=== PATIENT | female | born 1945 | race Caucasian/White ===

== ENCOUNTER → 2022-12-21 | Outpatient (CLI) | payer MEDICARE, SELFPAY ==
--- NOTE | 2022-12-21 13:15 | CT_ITS ---
STUDY: CTA ABDOMEN AND PELVIS WITH CONTRAST REASON FOR EXAM: Female, 77 years old. Evaluate AAA. RADIATION DOSAGE (If Supplied By Facility): CTDIvol = ( 27.40 ) mGy, DLP = ( 1829.69 ) mGycm TECHNIQUE: Transaxial images were obtained from the dome of the diaphragm to the symphysis pubis without oral contrast. IV 100mL Isovue-370 was administered. Sagittal and coronal images were reconstructed. 3-D images were reconstructed. Individualized dose optimization techniques were used for this CT. COMPARISON: None. FINDINGS: The visualized lung bases are unremarkable. The visualized portions of the heart are within normal limits. Normal liver. The patient is status post cholecystectomy. Normal spleen. Normal pancreas. Normal bilateral adrenal glands. Normal right kidney. Normal left kidney. Normal visualized stomach. Normal small intestine. Normal colon. The appendix is visualized and appears normal. There is evidence of a fusiform infrarenal abdominal aortic aneurysm with a transverse dimension of 4.9 cm. There is evidence of a mural calcification and mural thrombus. 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 Atherosclerotic calcification of the visceral arteries arising from the abdominal aorta. Normal inferior vena cava. Normal retroperitoneum. Normal urinary bladder. Normal abdominal wall. There are diffuse degenerative changes of the visualized lumbar spine. The patient is status post right total hip replacement. CT/CTA Abd/Pelvis W/WO Contrast IMPRESSION: Infrarenal abdominal aortic with a transverse dimension of 4.9 cm. 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 Electronically Signed: Andrew Borden MD at 15:06 EDT ,
--- NOTE | 2022-12-21 13:15 | CT_ITS ---
STUDY: CTA HEAD AND NECK WITH CONTRAST REASON FOR EXAM: Female, 77 years old. Carotid Artery Stenosis RADIATION DOSAGE (If Supplied By Facility): CTDIvol = ( 27.40 ) mGy, DLP = ( 1829.69 ) mGycm TECHNIQUE: CT angiography was performed with a multi-detector CT scanner. Data acquisition was obtained from the skull base through the vertex following intravenous administration of IV 100mL Isovue-370. MIP images were reconstructed from the axial data set. Post-processing of the angiographic images was performed, with multiplanar reformation and 3D reconstruction. Individualized dose optimization techniques were used for this CT. COMPARISON: No relevant priors. FINDINGS: Normal bilateral petrous carotid arteries. There is calcified plaque formation of the right cavernous carotid artery, without a cross-sectional luminal stenosis. There is calcified plaque formation of the left cavernous carotid artery, without a cross-sectional luminal stenosis. Normal right A1 segments of the anterior cerebral artery. Normal left A1 segments of the anterior cerebral artery. Normal intact anterior communicating artery (ACOM). Normal bilateral A2 segments of the anterior cerebral arteries. Normal right M1 and M2 segments of the middle cerebral arteries, with a normal M1 bifurcation. Normal left M1 and M2 segments of the middle cerebral arteries, with a normal M1 bifurcation. Normal right posterior communicating artery (PCOM). There is a persistent origin of the left posterior cerebral artery with absence of the posterior communicating artery (PCOM). Normal bilateral vertebral arteries. Normal basilar artery with a normal basilar bifurcation. The visualized bilateral superior cerebellar (SCA) arteries are normal. Normal bilateral P1, P2 and visualized P3 segments of the posterior cerebral arteries. There is no demonstrated aneurysm of the [place]. Cerebral atrophy. Decreased attenuation in the periventricular areas of both cerebral white matter in keeping with small vessel disease. Small lacunar infarct in the right basal ganglia. Focal encephalomalacia in the deep right parietal lobe in keeping with prior ischemic insult. AORTIC ARCH: There is atherosclerotic calcific plaque formation of the aortic arch and great vessels arising from the aortic arch, without a hemodynamically significant stenosis. There is a normal origin of the brachiocephalic, left common carotid, and left subclavian arteries. RIGHT CAROTID ARTERIES: Normal right common carotid artery (CCA). Normal right common carotid bulb. Normal origin of the right internal carotid (ICA) artery without a hemodynamically significant stenosis. Normal visualized cervical portion of the right internal carotid artery. Normal origin of the right external carotid artery (ECA). LEFT CAROTID ARTERIES: Normal left common carotid artery (CCA). Normal left common carotid bulb. There is severe atherosclerotic plaque formation of the origin of the left internal carotid artery with a near complete occlusion. Normal visualized cervical portion of the left internal carotid artery. Normal origin of the left external carotid artery (ECA). VERTEBRAL ARTERIES: There is enhancement within the bilateral vertebral arteries with a small right vertebral artery, and a dominant left vertebral artery. CT/CTA Head AND Neck W/ Contrast IMPRESSION: Tight stenosis at the origin of the left internal carotid artery caused by extensive calcific plaque formation. Small right vertebral artery. Heterogeneous appearance of the thyroid. Electronically Signed: Andrew Borden MD at 14:48 EDT ,
[2022-12-21 13:45] LABS: CREATININE FINGERSTICK < 0.9 mg/dL (0.55-1.02); EGFR FINGERSTICK > 60.0000 mL/min (>60)
== END | disposition home or self-care (01) ==
PROVIDERS: Referring Provider Physician Assistant; Visit Provider Physician Assistant
DX: I71.40 Abdominal aortic aneurysm, without rupture, unspecified (principal); I65.23 Occlusion and stenosis of bilateral carotid arteries
CPT/HCPCS: 70496; 70498; 74174; Q9967

== ENCOUNTER → 2023-08-01 | Outpatient (CLI) | payer MEDICARE, SELFPAY ==
--- NOTE | 2023-08-01 09:53 | CDU_ITS ---
Reason For Study: Carotid stenosis Rt. Velocities/BP Lt. Velocities/BP Prox CCA 63.6/21.1 cm/sec. Prox CCA 83.4/25.8 cm/sec. Mid CCA 72.1/22 cm/sec. Mid CCA 102.5/26.7 cm/sec. Dist CCA 56/15.4 cm/sec. Dist CCA 60.8/20.1 cm/sec. Prox ICA 51.3/17.3 cm/sec. Prox ICA 220.8/67.9 cm/sec. Mid ICA 74.4/24.2 cm/sec. Mid ICA 178.8/52.7 cm/sec. Dist ICA 80.2/28.6 cm/sec. Dist ICA 112.6/27 cm/sec. Rt. ICA/CCA = 1.26. Lt. ICA/CCA = 2.65. Prox ECA 49.4/9.7 cm/sec. Prox ECA 101.4/17.9 cm/sec. Rt. Vert. 23/10.2 cm/sec. Lt. Vert. 53.1/20.1 cm/sec. Right Extracranial There is heterogeneous, irregular atherosclerotic plaque noted in the right common carotid artery. There is homogeneous, smooth atherosclerotic plaque noted in the right internal carotid artery. There is homogeneous, smooth atherosclerotic plaque noted in the right external carotid artery. Antegrade flow is noted in the right vertebral artery. Left Extracranial There is heterogeneous, irregular atherosclerotic plaque noted in the left common carotid artery. There is heterogeneous, irregular atherosclerotic plaque noted in the left internal carotid artery. There is heterogeneous, irregular atherosclerotic plaque noted in the left external carotid artery. Antegrade flow is noted in the left vertebral artery. Procedure This is a Carotid Duplex examination using B-mode, color flow and specral Doppler. Carotid Duplex [id number]. Exam performed in department. VL/Carotid Duplex Ultrasound Interpretation Summary Mild (<50%) stenosis right extracranial internal carotid. Moderate (50-69%) stenosis left extracranial internal carotid. Patent and antegrade vertebrals bilaterally. Ordering Physician: Miguel Leiva Referring Physician: Bandar Epstein Performed By: Bessie Trujillo Dorie
--- NOTE | 2023-08-01 09:53 | AAVD_ITS ---
Reason For Study: AAA Aorta Measurements Aorta Doppler Measurements Proximal aorta measures1.80 x 1.79cm. in cross- Peak systolic flow velocities within the proximal sectional axis. aorta measure 50.2 cm/sec. Proximal aorta measures1.75cm. in longitudinal Peak systolic flow velocities within the mid aorta axis. measure 42.9 cm/sec. Mid aorta measures2.07 x 1.95cm. in cross- Peak systolic flow velocities within the distal sectional axis. aorta measure 33 cm/sec. Mid aorta measures2.56cm. in longitudinal axis. Distal aorta measures4.04 x 4.38cm. in cross- sectional axis. Distal aorta measures3.81cm. in longitudinal axis. Mural thrombus noted in the distal arota. Distal true lumen measures 2.21 x 1.94 cm. Left Iliac Artery Left iliac artery measures 0.66 x 0.66 cm. in the cross-sectional axis. Left iliac artery measures 0.63 cm. in the longitudinal axis. Peak systolic velocity in the left iliac artery measures 85.4 cm/sec. Right Iliac Artery Right iliac artery measures 0.66 x 0.67 cm. in the cross-sectional axis. Right iliac artery measures 0.65 cm. in the longitudinal axis. Peak systolic velocity in the right iliac artery measures 113.9 cm/sec. Procedure Aorta IVC Iliac vasculature or bypass grafts [id number]. Exam performed in department. VL/Abd Aortic/IVC Duplex scan Interpretation Summary Aorta patent, 4.38 cm aneurysm present Bilateral iliac arteries patent, normal caliber Ordering Physician: Miguel Leiva Referring Physician: Bandar Epstein Performed By: Bessie Trujillo RVT
--- OUTSIDE RECORDS SUMMARY | 2023-08-01 10:47 | XMS RPT_ITS | CCD ---
Author Name Unknown Address [address] [place] [address] Organization [facility] Care Team Providers Care Coil Connector Repairer Name Role Phone Reji Williamson Primary Care Provider [phone] Nilesh Newton Primary Care Provider [phone] Nilesh Newton Primary Care Provider Unav ailable Nilesh Newton Primary Care Provider Nilesh Newton MD Primary Care Provider Nilesh Newton MD Primary Care Provider Nilesh Newton MD Primary Care Provider Reji Williamson MD Primary Care Provider [phone] Nilesh Newton MD Primary Care Provider PROVIDER, UNKNOWN Referring Unavailable Nilesh Newton Primary Care Unavailable Miguel Leiva Attending Unavailable PROVIDER, UNKNOWN Referring Unavailable Nilesh Newton Primary Care Unavailable Nilesh Newton Attending Unavailable PROVIDER, UNKNOWN Referring Unavailable Nilesh Newton Primary Care Unavailable Nilesh Newotn Attending Unavailable NILESH NEWTON MD Primary Care Unavail able ERIC ERVIN MD Attending Unavailable AZIZA DENNIS, ERIC Admitting Unavailable Nilesh Newton MD Primary Care Provider Nilesh Newton MD Primary Care Provider NILESH NEWTON Primary Care Unavailable QUINTEN MINERISON Referring Unavailable DANIELE MINER Attending Unavailable MICHELLE ADDISON Attending Unavailable NILESH NEWTON Primary Care Unavailable NILESH NEWTON Primary Care Unavailable LESLIE VENTURA Attending Unavailable NILESH NEWTON Referring Unavailable NILESH NEWTON Referring Unavailable JOE RUCKER Referring Unavailable HIPOLITO BLACK Referring Unavailable Allergies Allergy Classification Reported Allergen(s) Allergy Type Date of Onset Reaction(s) Facility Quinolones (antibiotic) (3 sources) levoFLOXacin Drug Allergy 9 Other (See Comments) [facility] (20 sources) levoFLOXacin Drug Allergy 9 Other (See Comments) [place] (20 sources) Morphine And Related Propensity to adverse reactions to drug 8 Itching [place] (11 sources) levoFLOXacin Drug Allergy 2 Nausea Only [facility] (11 sources) Morphine Drug Allergy 5 Itching [facility] Medications Current Medications Medication Drug Class(es) Dates Sig (Normalized) Sig (Original) acetaminophen 500 mg oral tablet (13 sources) Start: 10-18-2020 acetaminophen (TYLENOL) tablet 1,000 mg Completed/Discontinued Medications Medication Drug Class(es) Dates Sig (Normalized) Sig (Original) acetaminophen 325 mg / oxyCODONE hydrochloride 5 mg oral tablet (2 sources) Opioid Agonist Start: 10-18-2020 End: 10-18-2020 take 1 tablet by mouth every four hours as needed for pain 1 tablet, Oral, EVERY 4 HOURS PRN, Pain Severe (7-10), Starting 10/18/20 at 0629 Maximum dose of acetaminophen is 4000 mg from all sources in 24 hours. amLODIPine 5 mg oral tablet (19 sources) Dihydropyridine Calcium Channel Lito Start: 07-20-2022 End: 05-26-2023 take 1 tablet by mouth once daily amLODIPine (Norvasc) 5 MG tablet Indications: Essential hypertension Take 1 tablet (5 mg) by mouth daily. 90 tablet 3 05/10/2023 05/26/2023 Discontinued calcium chloride 0.0014 meq/ml / potassium chloride 0.004 meq/ml / sodium chloride 0.103 meq/ml / sodium lactate 0.028 meq/ml injectable solution (1 source) Start: 02-07-2020 End: 02-08-2020 Intravenous, at 150 mL/hr, CONTINUOUS, Starting 02/07/20 at 1130 2 ml fentaNYL 0.05 mg/ml injection (1 source) Opioid Agonist Start: 02-07-2020 End: 02-07-2020 fentaNYL (SUBLIMAZE) injection 25 mcg 1 ml heparin sodium, porcine 5000 unt/ml prefilled syringe (1 source) Unfractionated Heparin, Anti-coagulant Start: 10-18-2020 End: 10-18-2020 heparin (porcine) injection 5,000 Units 1 ml hydrALAZINE hydrochloride 20 mg/ml injection (1 source) Arteriolar Vasodilator Start: 02-08-2020 End: 02-08-2020 hydrALAZINE (APRESOLINE) injection 5 mg iopamidol (ISOVUE-370) 76 % injection 75 mL (1 source) Start: 05-30-2020 End: 05-30-2020 iopamidol (ISOVUE-370) 76 % injection 75 mL niCARdipine (CARDENE) 20 mg in 0.9 % sodium chloride 200 mL solution (1 source) Start: 10-18-2020 End: 10-18-2020 niCARdipine (CARDENE) 20 mg in 0.9 % sodium chloride 200 mL solution nitroglycerin 0.4 mg sublingual tablet (20 sources) Nitrate Vasodilator End: 10-18-2020 nitroGLYCERIN (NITROSTAT) 0.[address] 0.4 mg under the tongue every 5 minutes as needed for Chest pain up to max of 3 total doses. If no relief after 1 dose, call 911. 0 10/18/2020 Discontinued (LIST CLEANUP) piperacillin 3000 mg / tazobactam 375 mg injection (1 source) Penicillin-class Antibacterial, beta Lactamase Inhibitor Start: 02-07-2020 End: 02-08-2020 piperacillin-tazo bactam (ZOSYN) 3.375 g in dextrose 50 mL IVPB extended infusion (premix) microencapsulated potassium chloride 10 meq extended release oral tablet (2 sources) Start: 10-18-2020 End: 10-18-2020 potassium chloride (KLOR-CON M) extended release tablet 40 mEq Problems Active Problems Problem Classification Problem Date Documented Date Episodic/Chronic Abdominal pain (1 source) Right lower quadrant pain; Translations: [Groin pain, right] Episodic Acute cerebrovascular disease (17 sources) Ischemic stroke; Translations: [Cerebral infarction, unspecified] Onset: 10-18-2020 Chronic Administrative/social admission (1 source) Tobacco abuse counseling; Translations: [TOBACCO ABUSE COUNSELING] Onset: 09-28-2022 Episodic Anxiety disorders (20 sources) Mixed anxiety and depressive disorder; Translations: [Other specified anxiety disorders] Onset: 05-09-2019 05-09-2019 Chronic Aortic; peripheral; and visceral artery aneurysms (20 sources) Abdominal aortic aneurysm; Translations: [Abdominal aortic aneurysm without rupture] Onset: 05-21-2018 05-21-2018 Chronic Cardiac dysrhythmias (1 source) Palpitations; Translations: [Palpitations] Episodic Chronic obstructive pulmonary disease and bronchiectasis (20 sources) Acute exacerbation of chronic obstructive airways disease with asthma; Translations: [Acute exacerbation of chronic obstructive airways disease] Onset: 05-09-2019 05-10-2019 Chronic Coronary atherosclerosis and other heart disease (20 sources) Coronary arteriosclerosis in [place] artery; Translations: [Coronary atherosclerosis] Onset: 03-16-2018 03-16-2018 Chronic Disorders of lipid metabolism (20 sources) Hyperlipidemia; Translations: [Hyperlipidemia, unspecified] Onset: 10-19-2020 05-21-2018 Chronic Esophageal disorders (20 sources) Gastroesophageal reflux disease; Translations: [Gastro-esophageal reflux disease without esophagitis] Onset: 03-15-2018 03-15-2018 Chronic Essential hypertension (20 sources) Essential hypertension; Translations: [Hypertensive disorder] Onset: 03-16-2018 Resolved: 04-28-2020 03-16-2018 Chronic Genitourinary symptoms and ill-defined conditions (1 source) Retention of urine; Translations: [Retention of urine, unspecified] Episodic Hypertension with complications and secondary hypertension (17 sources) Hypertensive emergency; Translations: [Hypertensive emergency] Onset: 10-18-2020 Chronic Miscellaneous mental health disorders (20 sources) Insomnia disorder related to another mental disorder; Translations: [Insomnia due to other mental disorder] Onset: 05-09-2019 05-09-2019 Chronic Nonmalignant breast conditions (1 source) Lump in upper outer quadrant of right breast; Translations: [Unspecified lump in the right breast, upper outer quadrant] Episodic Occlusion or stenosis of precerebral arteries (20 sources) Occlusion and stenosis of bilateral carotid arteries; Translations: [Bilateral carotid artery stenosis] Onset: 10-18-2020 Chronic Osteoarthritis (20 sources) Osteoarthritis; Translations: [Unspecified osteoarthritis, unspecified site] Onset: 10-08-2018 10-22-2018 Chronic Osteoporosis (20 sources) Osteoporosis; Translations: [Age-related osteoporosis without current pathological fracture] Onset: 10-08-2018 10-22-2018 Chronic Other acquired deformities (1 source) Other forms of scoliosis, lumbar region; Translations: [OTHER FORMS SCOLIOSIS LUMBAR REGION] Onset: 09-28-2022 Chronic Other aftercare (1 source) [facility] (current) use of aspirin; 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] Onset: 09-28-2022 Episodic Other aftercare (1 source) Other long-term (current) drug therapy; Translations: [OTH [facility] CURRENT DRUG THERAPY] Onset: 09-28-2022 Episodic Other connective tissue disease (17 sources) History of repair of hip joint; Translations: [Presence of right artificial hip joint] Onset: 10-19-2020 Chronic Other connective tissue disease (1 source) Presence of right artificial hip joint; Translations: [PRESENCE RIGHT ARTIFICIAL HIP JOINT] Onset: 09-28-2022 Chronic Other connective tissue disease (1 source) Myalgia, other site; Translations: [MYALGIA OTHER SITE] Onset: 09-28-2022 Episodic Other hematologic conditions (1 source) Protein level - finding; Translations: [Other specified abnormalities of plasma proteins] Episodic Peripheral and visceral atherosclerosis (20 sources) Peripheral vascular disease; Translations: [Atherosclerosis of [place] arteries of the extremities] Onset: 03-15-2018 03-15-2018 Chronic Residual codes; unclassified (1 source) Pain, unspecified; Translations: [PAIN UNSPECIFIED] Onset: 09-28-2022 Episodic Spondylosis; intervertebral disc disorders; other back problems (3 sources) Spondylosis without myelopathy or radiculopathy, lumbar region; Translations: [Sacroiliitis, not elsewhere classified] Onset: 03-02-2022 Chronic Spondylosis; intervertebral disc disorders; other back problems (2 sources) Sciatica; Translations: [Spinal stenosis, lumbar region with neurogenic claudication] Onset: 09-28-2022 Episodic Substance-related disorders (1 source) Nicotine dependence, cigarettes, uncomplicated; Translations: [NICOTINE DEPEND CIGARETTES UNCOMP] Onset: 09-28-2022 Chronic Thyroid disorders (20 sources) Thyrotoxicosis; Translations: [Thyrotoxicosis, unspecified without thyrotoxic crisis or storm] Onset: 05-10-2019 05-10-2019 Chronic Transient cerebral ischemia (17 sources) Transient cerebral ischemia; Translations: [Transient cerebral ischemic attack, unspecified] Onset: 10-18-2020 Chronic Unclassified (1 source) Low back pain, unspecified; Translations: [Low back pain, unspecified] Onset: 03-02-2022 Unclassified (1 source) Abdominal aortic aneurysm, without rupture, unspecified; Translations: [Abdominal aortic aneurysm, without rupture, unspecified] Onset: 07-22-2022 Past or Other Problems Problem Classification Problem Date Documented Date Episodic/Chronic Acute and unspecified renal failure (17 sources) Acute injury of kidney; Translations: [Acute kidney failure, unspecified] Onset: 10-19-2020 Episodic Conditions associated with dizziness or vertigo (20 sources) Dizziness; Translations: [Dizziness and giddiness] Onset: 03-15-2018 03-15-2018 Episodic Fluid and electrolyte disorders (20 sources) Hyponatremia; Translations: [Hypo-osmolality and hyponatremia] Onset: 05-09-2019 05-09-2019 Episodic Nonspecific chest pain (20 sources) Chest pain on exertion; Translations: [Chest pain, unspecified] Onset: 03-15-2018 03-15-2018 Episodic Other lower respiratory disease (20 sources) Dyspnea on exertion; Translations: [Shortness of breath] Onset: 03-15-2018 03-15-2018 Episodic Other lower respiratory disease (20 sources) Dyspnea; Translations: [Shortness of breath] Onset: 05-09-2019 05-09-2019 Episodic Other lower respiratory disease (17 sources) Respiratory insufficiency; Translations: [Other abnormalities of breathing] Onset: 10-19-2020 Episodic Other nervous system disorders (20 sources) Tremor; Translations: [Tremor, unspecified] Onset: 05-09-2019 05-09-2019 Episodic Other nutritional; endocrine; and metabolic disorders (20 sources) Weight loss; Translations: [Abnormal weight loss] Onset: 05-09-2019 05-09-2019 Episodic Other screening for suspected conditions (not mental disorders or infectious disease) (2 sources) Encounter for screening mammogram for malignant neoplasm of breast; Translations: [Encounter for screening mammogram for malignant neoplasm of breast] Onset: 06-07-2022 Episodic Pancreatic disorders (not diabetes) (20 sources) Acute pancreatitis; Translations: [Gallstone pancreatitis] Onset: 02-07-2020 Resolved: 02-28-2020 02-09-2020 Episodic Residual codes; unclassified (2 sources) Tobacco use; Translations: [Tobacco use] Onset: 11-28-2022 Episodic Residual codes; unclassified (2 sources) Asymptomatic menopausal state; Translations: [Asymptomatic menopausal state] Onset: 06-07-2022 Episodic Unclassified (1 source) Low back pain, unspecified; Translations: [Low back pain, unspecified] Onset: 03-02-2022 Unclassified (1 source) Abdominal aortic aneurysm, without rupture, unspecified; Translations: [Abdominal aortic aneurysm, without rupture, unspecified] Onset: 07-22-2022 Results Test Name Value Interpretation Reference Range Facil ity Vital Signs Date Time Vital Sign Value Performing Clinician Faci lity 03-29-2023 15:02-0400 Diastolic blood pressure 80 mm[Hg] Leslie Ventura MD Work Phone: [employer] 03-29-2023 15:02-0400 Systolic blood pressure 140 mm[Hg] Otelias Ventura MD Work Phone: [employer] 03-29-2023 14:49-0400 Body height 149.9 cm Otelias Ventura MD Work Phone: [employer] 03-29-2023 14:49-0400 Body mass index (BMI) [Ratio] 26.05 kg/m2 Otelias Ventura MD Work Phone: [employer] 03-29-2023 14:49-0400 Body weight 58.51 kg Otelias Ventura MD Work Phone: [employer] 03-29-2023 14:49-0400 Heart rate 60 /min Otelias Ventura MD Work Phone: [employer] 03-29-2023 14:49-0400 SaO2% (BldA) [Mass fraction] 97 % Leslie Ventura MD Work Phone: [employer] 10-19-2020 17:00-0400 Diastolic blood pressure 84 mm[Hg] Yasir Donohue MD Work Phone: [facility] Work Phone: 10-19-2020 17:00-0400 Heart rate 67 /min Yasir Donohue MD Work Phone: [facility] Work Phone: 10-19-2020 17:00-0400 Respiratory rate 16 /min Yasir Donohue MD Work Phone: [facility] Work Phone: 10-19-2020 17:00-0400 SaO2% (BldA) [Mass fraction] 98 % Yasir Donohue MD Work Phone: [facility] Work Phone: 10-19-2020 17:00-0400 Systolic blood pressure 155 mm[Hg] Yasir Donohue MD Work Phone: [facility] Work Phone: 10-19-2020 16:00-0400 Body temperature 98.01 [degF] Yasir Donohue MD Work Phone: [facility] Work Phone: 10-18-2020 04:27-0400 Body mass index (BMI) [Ratio] 23.62 kg/m2 Yasir Donohue MD Work Phone: [facility] Work Phone: 10-18-2020 04:27-0400 Body weight 56.7 kg Yasir Donohue MD Work Phone: [facility] Work Phone: 10-18-2020 00:30-0400 Body height 154.9 cm Yasir Donohue MD Work Phone: [facility] Work Phone: 05-30-2020 17:56-0500 BP Diastolic 85 mm[Hg] [facility] , [place] 05-30-2020 17:56-0500 BP Systolic 152 mm[Hg] [facility] , [place] 05-30-2020 17:56-0500 Pulse (Heart Rate) 65 /min [facility] [place], [place] 05-30-2020 17:56-0500 Respiratory Rate 16 /min Fred Palacios [facility], [place] 05-30-2020 14:58-0500 BMI (Body Mass Index) 25.97 kg/m2 Fred Argueta [facility], [place] 05-30-2020 14:58-0500 Body Temperature 97.11 [degF] [facility] [place] 05-30-2020 14:58-0500 Body weight 60.33 kg Fred Palacios [facility] , [place] 05-30-2020 14:58-0500 Height 152.4 cm Fred Palacios [facility] , [place] 05-30-2020 14:58-0500 Pulse Oximetry 100 % Fred Palacios [facility] , [place] 02-09-2020 07:48-0400 BP Diastolic 104 mm[Hg] [facility] , [place] 02-09-2020 07:48-0400 BP Systolic 183 mm[Hg] [facility] , [place] 02-09-2020 07:48-0400 Pulse (Heart Rate) 77 /min [place] 02-09-2020 07:42-0400 Body Temperature 97.9 [degF] [facility] [place] 02-09-2020 07:42-0400 Pulse Oximetry 96 % [facility] [place] 02-09-2020 07:42-0400 Respiratory Rate 12 /min [facility] [place] 02-09-2020 04:49-0400 BMI (Body Mass Index) 25.48 kg/m2 Amanda Kay [facility], [place] 02-09-2020 04:49-0400 Body weight 61.18 kg [facility] [place] 02-07-2020 05:09-0400 Height 154.9 cm [facility] [place] Encounters Encounter Date Encounter Type Care Provider Facility Start: 05-26-2023 Refill Otfried Kim peña MD Work Phone: [facility] Procedures Date Procedure Procedure Detail Performing Clinician Start: 03-02-2022 Lipid 1996 panel - S ron or Plasma Miguel Leiva MD Work Phone: Start: 12-06-2021 Duplex scan extracra nial art compl bi study Miguel Leiva MD Work Phone: Start: 05-06-2021 VL US DUPLEX AORTA I VC ILIAC COMPLETE Hipolito HUDSON Work Phone: Start: 05-06-2021 Duplex scan extracra nial art compl bi study Miguel Leiva MD Work Phone: Start: 01-19-2021 Diagnostic mammograp hy computer-aided detcj bi Ranjeet Lopez MD Work Phone: Start: 10-19-2020 Mri brain brain stem w/o contrast material Danni Ali DO Work Phone: Start: 10-19-2020 Calcium ionized Danni Ali DO Work Phone: Start: 10-18-2020 Assay of troponin quantitative Danni Ali DO Work Phone: Start: 10-18-2020 Basic metabolic pane l calcium total Tyrese Monzon [employer]WIST 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 Work Phone: Start: 10-18-2020 Lipid panel Tyrese Monzon [employer]PTWIST 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 Work Phone: Start: 10-18-2020 Echo tthrc r-t 2d w/wom-mode compl spec&colr d Danni Ali DO Work Phone: Start: 10-18-2020 BLOOD GAS, ARTERIAL Fat fabi Ali DO Work Phone: Start: 10-18-2020 Assay of lactate Danni Ali DO Work Phone: Start: 10-18-2020 Thromboplastin time partial plasma/whole blood Danni Ali DO Work Phone: Start: 10-18-2020 ADD ON LAB TEST Yasir Donohue MD Work Phone: Start: 10-18-2020 Radiologic exam ches t single view Yasir Donohue MD Work Phone: Start: 10-18-2020 Speech and language therapy regime Danni Trinh DO Work Phone: Start: 10-18-2020 Ecg routine ecg w/le ast 12 lds w/i&r Yasir Donohue MD Work Phone: Start: 10-18-2020 Radex hip unilateral with pelvis 2-3 views Yasir Donohue MD Work Phone: Start: 10-18-2020 End: 10-18-2020 Ct angiography head w/contrast/noncontrast Yasir Donohue MD Work Phone: Start: 10-18-2020 Cerebral perfusion a nalys ct w/blood flow&volume Yasir Donohue MD Work Phone: Start: 10-18-2020 End: 10-18-2020 POC BMP, WHOLE BLOOD Unknown Provider Re sult Start: 10-18-2020 Creatine kinase total D ginette Donohue MD Work Phone: Start: 09-30-2020 Ct lower extremity w /o contrast material Dick Frazier Work Phone: Start: 05-30-2020 Cta abdl aorta&bi il iofem w/contrast&postp Fred Palacios Work Phone: Start: 05-30-2020 Basic metabolic pane l calcium total Fred Palacios Work Phone: Start: 05-30-2020 Blood count complete auto&auto difrntl wbc Fred Palacios Work Phone: Start: 04-21-2020 VL US DUPLEX AORTA I VC ILIAC COMPLETE Miguel J Cali Work Phone: Start: 04-21-2020 Duplex scan extracra nial art compl bi study Stephanie Loving Work Phone: Start: 02-08-2020 OPERATIVE REPORT 3m Sca nning Start: 02-08-2020 Assay of lipase Yasir Herbert Work Phone: Start: 02-08-2020 Assay of magnesium Nic las Elviak Work Phone: Start: 02-08-2020 Blood count complete auto&auto difrntl wbc Yasir Godinez Work Phone: Start: 02-07-2020 Mri abdomen w/o cont rast material Yasir Godinez Work Phone: Start: 02-07-2020 ADD ON LAB TEST Yasir Godinez Work Phone: Start: 02-07-2020 Ecg routine ecg w/le ast 12 lds w/i&r Amanda [place] Work Phone: Start: 02-07-2020 Us abdominal real ti me w/image limited Leydi Vaildanicataisha Work Phone: Start: 02-07-2020 Assay of lipase Amanda Kay Work Phone: Start: 02-07-2020 Basic metabolic pane l calcium total Amanda Kibe Work Phone: Start: 02-07-2020 Blood count complete auto&auto difrntl wbc Amanda Kibe Work Phone: Start: 02-07-2020 Hepatic function panel Amanda [facility] Work Phone: Start: 07-09-2019 Brncdilat rspse spmt ry pre&post-brncdilat admn Les Cho MD Work Phone: Start: 07-09-2019 NEBULIZER TX INTERMITTENT Les Cho MD Work Phone: Start: 04-04-2019 VL US DUPLEX AORTA I VC ILIAC COMPLETE Miguel Leiva Work Phone: Start: 04-04-2019 N-invas physiologic std lxtr art compl bi Miguel Leiva Work Phone: Plan of Treatment Date Care Activity Detail Author Start: 03-02-2027 Lipid panel Lipid Panel [facility] Start: 04-02-2024 End: 04-02-2024 Patient encounter procedure 04/02/2024 1:00 PM EDT Office Visit [facility] [address] [place] [id number] Leslie Ventura MD [address] [place] [address] [facility] Start: 06-07-2023 Screening for osteoporosis Bone Density Scan [facility] Start: 03-21-2023 End: 03-21-2023 Patient encounter procedure 03/21/2023 1:30 PM EDT Office Visit [facility] [address] [place] [phone] Leslie Ventura MD [address] [place] [address] [facility] Start: 02-24-2023 COVID-19 Vaccine ( season) COVID-19 Vaccine () [facility] Start: 02-24-2023 Influenza vaccination [facility] Start: 11-07-2022 End: 11-07-2022 Patient encounter procedure 11/07/2022 Office Visit Cardiology Michelle Addison, [employer]WIST 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 [address] [address] [facility] Start: 07-18-2022 End: 07-18-2023 CT Cervical spine WO contrast CTA abdomen angiogram w and/or wo IV contrast Imaging Routine AAA (abdominal aortic aneurysm) Expected: 07/18/2022, Expires: 07/18/2023 [facility] Work Phone: Immunizations Immunization Date Immunization Notes Care Provider [facility] 07-19-2022 influenza virus vaccine, unspecified formulation Leslie Ventura MD Work Phone: [facility] 03-30-2021 influenza virus vaccine, unspecified formulation Miguel Leiva MD Work Phone: [facility] 06-28-2019 Influenza, High-dose , Quadv, 65 yrs +, IM (Fluzone) Yadira Greene [employer]WIST 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 Work Phone: [facility] Work Phone: 05-06-2018 Influenza, injectabl e, Madin Wayland Canine Kidney, preservative free, quadrivalent [facility], [place] 08-02-2016 Influenza, injectabl e, Madin Demetria Canine Kidney, preservative free, quadrivalent [facility] 06-26-2014 pneumococcal Conjugate, unspecified formulation [facility], [place] 06-26-2014 pneumococcal vaccine , unspecified formulation Yadira Greene [employer]PTWIST 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 Work Phone: [facility] Work Phone: Payers Date Payer Category Payer Medicare A[employer] MEDICARE A DVANTAGE AETNA MEDICARE [id number] 2021-Present [address] [place] [address] Medicare HMO [id number] 2014 Medicare UHC MEDICARE UHC MEDICARE COMPLETE xxxxxxxxx 2014-Present xxxxxxxxx [id number] 2014 Medicare UHC MEDICARE UHC MEDICARE COMPLETE [id number] 2014-Present [id number] 1959 Medicare [id number] 1945 Unknown [id number] 1945 Unknown [id number] 1945 Unknown [id number] 1945 Unknown [id number] Private Health Insurance Social History Date Type Detail Facility Start: 01-28-1969 End: 05-16-2022 Tobacco smoking status NHIS Current every day smoker [place], [place] Start: 01-28-1969 History of tobacco use Cigarette Smo ker [place] Start: 05-31-2019 End: 03-29-2023 Cigarettes smoked current (pack per day) - Reported [place] Start: 05-31-2019 End: 03-29-2023 Alcohol intake Current non-drinker of alcohol (finding) [place] Sex Assigned At Not on file [place] Start: 06-10-2019 End: 05-16-2022 Tobacco use and exposure Never used [place] Start: 07-12-2022 End: 07-22-2022 Exposure to SARS-CoV-2 (event) Not sure [place] Start: 1945 Sex Assigned At Female [place] Start: 01-29-2019 End: 03-29-2023 Alcohol intake No [place] Start: 11-06-2020 Tobacco Comment 5 cigarettes/day [facility] Work Phone: Start: 04-14-2022 Gender identity Identifies as female gender (finding) [facility] Clinical Notes 10-19-2020 to 05-26-2023 Telephone Encounter - Henri Pino RN - 05/26/2023 11:00 AM ESTTelephone Encounter - Henri Pino RN - 05/26/2023 11:00 AM ESTTelephone Encounter - Gladys Roche - 05/26/2023 10:31 AM ESTAttachments Note Date & Type Note Facility 05-26-2023 Telephone encounter Note I received escript request- sent to ONN to sign [facility] 05-26-2023 Miscellaneous Notes I received escript request- sent to ONN to sign Patient daughter called and patient will be out of amlodipine over the weekend still has not got the mail order supposed to come Monday got delivered to wrong house please advise Local Rx gets cancelled when mail away pharmacy sent. Pt unable to get refill. Phoned in short term amlodipine script to [facility]. #7 refill 1 pt will get notified when script is ready Pended rx for long-term. Pt should have 1 refill left on 7 day supply at [facility] Addended by: HENRI PINO on: 05/10/2023 03:18 PM Modules accepted: Orders Amlodipine 5mg OV 03/29/2023 patient still has not received through mail away stated it got cancelled and only has 1 pill left if possible could get another short term to [facility] and then sent in to her mail away which is [facility] for qty of 90* then please call nica for update Amlodipine 5mg OV 03/29/2023 Pharmacy on file[facility] just need a week supply because waiting on mail order documented in this encounter [facility] 05-26-2023 Telephone encounter Note OV 03/29/23 [facility] 05-26-2023 Miscellaneous Notes OV 03/29/23 documented in this encounter [facility] 05-26-2023 Telephone encounter Note Patient daughter called and patient will be out of amlodipine over the weekend still has not got the mail order supposed to come Monday got delivered to wrong house please advise [facility] 05-10-2023 Note Addended by: HENRI PINO on: 05/10/2023 03:18 PM Modules accepted: Orders [facility] 05-10-2023 Telephone encounter Note Local Rx gets cancelled when mail away pharmacy sent. Pt unable to get refill. Phoned in short term amlodipine script to [facility]. #7 refill 1 pt will get notified when script is ready [facility] 05-10-2023 Miscellaneous Notes Local Rx gets cancelled when mail away pharmacy sent. Pt unable to get refill. Phoned in short term amlodipine script to [facility] #7 refill 1 pt will get notified when script is ready Pended rx for long-term. Pt should have 1 refill left on 7 day supply at [facility] Addended by: HENRI PINO on: 05/10/2023 03:18 PM Modules accepted: Orders Amlodipine 5mg OV 03/29/2023 patient still has not received through mail away stated it got cancelled and only has 1 pill left if possible could get another short term to [facility] and then sent in to her mail away which is [facility] for qty of 90* then please call nica for update Amlodipine 5mg OV 03/29/2023 Pharmacy on file[facility] just need a week supply because waiting on mail order documented in this encounter [facility] 05-10-2023 Telephone encounter Note Pended rx for long-term. Pt should have 1 refill left on 7 day supply at [facility] 05-10-2023 Note Addended by: HENRI PINO on: 05/10/2023 03:18 PM Modules accepted: Orders [facility] 05-10-2023 Note Addended by: HENRI PINO on: 05/10/2023 03:18 PM Modules accepted: Orders [facility] 05-10-2023 Note Addended by: HENRI PINO on: 05/10/2023 03:18 PM Modules accepted: Orders [facility] 05-10-2023 Note Addended by: HENRI PINO on: 05/10/2023 03:18 PM Modules accepted: Orders [facility] 05-10-2023 Telephone encounter Note Amlodipine 5mg OV 03/29/2023 patient still has not received through mail away stated it got cancelled and only has 1 pill left if possible could get another short term to [facility] and then sent in to her mail away which is [facility] for qty of 90* then please call nica for update [facility] 05-02-2023 Telephone encounter Note Amlodipine 5mg OV 03/29/2023 Pharmacy on [facility] just need a week supply because waiting on mail order [facility] 05-02-2023 Miscellaneous Notes Amlodipine 5mg OV 03/29/2023 Pharmacy on [facility] just need a week supply because waiting on mail order documented in this encounter [facility] 03-29-2023 History of Presen t illness Narrative [facility] [address] [facility] [address] Dept: [phone] Dept Visit type: Established : 1945 Chief Complaint: Chief Complaint Patient presents with 6 Month Follow-up Coronary Artery Disease History of Present Illness: Fitz Street is a 77 y.o. female who presents today for routine follow-up regarding her coronary artery disease, hyperlipidemia and hypertension. She is accompanied by her [id number]. She denies shortness of breath, chest pain, palpitations, syncope. She denies any changes in her overall health since last year. She is followed by Dr. Leiva for her peripheral vascular disease, carotid disease and AAA. She had right carotid endarterectomy and did well. She likely will face left carotid endarterectomy in the foreseeable future. Past Medical History: Past Medical History: Diagnosis Date Abdominal aortic aneurysm (HCC) Anxiety 07/05/2016 Arthritis Basal cell carcinoma 2021 Bilateral carotid artery stenosis CAD (coronary artery disease) Chest pain COPD (chronic obstructive pulmonary disease) (HCC) CVA (cerebral vascular accident) (HCC) Depression 07/05/2016 Gallstone pancreatitis GERD with esophagitis 08/02/2016 Gout 01/18/2018 Hyperlipidemia Hypertension Peripheral vascular disease (HCC) TIA (transient ischemic attack) Tobacco abuse Vagal reaction 03/03/2015 pt states she had a vagal reaction while in OR for iliac stent surgery and had to have CPR Past Surgical History Past Surgical History: Procedure Laterality Date BREAST BIOPSY Right 2020 BREAST BIOPSY Right 2020 CARDIAC PROCEDURE 2011 stent x 1 CAROTID ENDARTERECTOMY Right 10/29/2020 [place] CATARACT EXTRACTION CHOLECYSTECTOMY 02/08/2020 Dr. Mccauley CORONARY ANGIOPLASTY PCI to LAD 2010 CORONARY ANGIOPLASTY WITH STENT PLACEMENT FEMORAL BYPASS Bilateral 03/03/2015 [facility], 3 stents each side femoral KNEE ARTHROSCOPY Right OOPHORECTOMY 1987 TOTAL ABDOMINAL HYSTERECTOMY 1986 TOTAL HIP ARTHROPLASTY Right [facility] October 16, 2020 Family History Family History Problem Relation Name Age of Onset Breast cancer Mother 84 Heart disease Father Social History Social History Tobacco Use Smoking status: Every Day Packs/day: .25 Types: Cigarettes Start date: 01/28/1969 Smokeless tobacco: Never Tobacco comments: Quit smokin cigarettes/day Substance Use Topics Alcohol use: No Drug use: No Allergies: Allergies Allergen Reactions Levofloxacin Nausea Only Other reaction(s): Confusion, Other Morphine Itching Medications: Current Outpatient Medications: albuterol 108 (90 Base) MCG/ACT inhaler, every 4 hours., Disp: , Rfl: ALLOPURINOL PO, Take 75 mg by mouth daily. Dose fluctuates., Disp: , Rfl: amLODIPine (Norvasc) 5 MG tablet, Take 1 tablet (5 mg) by mouth daily., Disp: 90 tablet, Rfl: 3 aspirin 81 MG EC tablet, Take 81 mg by mouth in the morning., Disp: , Rfl: cholecalciferol (Vitamin D-3) 50 MCG (2000 UT) capsule, Take 2,000 Units by mouth in the morning., Disp: , Rfl: famotidine (Pepcid) 20 MG tablet, , Disp: , Rfl: lisinopril 30 MG tablet, , Disp: , Rfl: metoprolol succinate XL (Toprol-XL) 100 MG 24 hr tablet, metoprolol succinate ER 100 mg tablet,extended release 24 hr Take 1 tablet daily, Disp: , Rfl: mirtazapine (Remeron) 30 MG tablet, Take 30 mg by mouth Nightly., Disp: , Rfl: pravastatin (Pravachol) 40 MG tablet, , Disp: , Rfl: Probiotic Product (PROBIOTIC DAILY PO), Take by mouth., Disp: , Rfl: venlafaxine XR (Effexor XR) 150 MG 24 hr tablet, 150 mg daily. Daily, Disp: , Rfl: acetaminophen (Tylenol) 325 MG capsule, Take 650 mg by mouth every 6 hours as needed for mild pain (1-3)., Disp: , Rfl: Review of Systems: Review of Systems Constitutional: Negative for activity change, chills, diaphoresis, fatigue and fever. HENT: Negative for nosebleeds and trouble swallowing. Eyes: Negative for discharge and visual disturbance. Respiratory: Negative for apnea, cough, chest tightness, shortness of breath and wheezing. Cardiovascular: Negative for chest pain, palpitations and leg swelling. Gastrointestinal: Negative for abdominal distention, abdominal pain, blood in stool, diarrhea, nausea and vomiting. Endocrine: Negative for cold intolerance and heat intolerance. Genitourinary: Negative for hematuria. Musculoskeletal: Positive for arthralgias. Negative for gait problem and myalgias. Skin: Negative for color change and rash. Neurological: Negative for dizziness, seizures, syncope, facial asymmetry, speech difficulty, weakness, light-headedness, numbness and headaches. Hematological: Does not bruise/bleed easily. Psychiatric/Behavioral: Negative for dysphoric mood. Physical Examination: Vitals: Vitals: 03/29/23 1449 03/29/23 1502 BP: (!) 152/92 (!) 140/80 BP Location: Left arm Patient Position: Sitting BP Cuff Size: Adult Pulse: 60 SpO2: 97% Weight: 129 lb (58.5 kg) Height: 4' 11 (1.499 m) Body mass index is 26.05 kg/m . Physical Exam Vitals reviewed. Constitutional: Appearance: Normal appearance. She is normal weight. HENT: Head: Normocephalic and atraumatic. Right Ear: External ear normal. Left Ear: External ear normal. Nose: Nose normal. Eyes: Extraocular Movements: Extraocular movements intact. Conjunctiva/sclera: Conjunctivae normal. Neck: Vascular: No carotid bruit. Cardiovascular: Rate and Rhythm: Normal rate and regular rhythm. Heart sounds: No murmur heard. No gallop. Pulmonary: Effort: Pulmonary effort is normal. Breath sounds: Normal breath sounds. No wheezing. Abdominal: General: Bowel sounds are normal. Palpations: Abdomen is soft. Musculoskeletal: General: No swelling. Normal range of motion. Cervical back: Neck supple. Right lower leg: No edema. Left lower leg: No edema. Skin: General: Skin is warm and dry. Neurological: General: No focal deficit present. Mental Status: She is alert and oriented to person, place, and time. Psychiatric: Mood and Affect: Mood normal. Behavior: Behavior normal. Laboratory Tests: - Basic Metabolic Panel (BMP/Chem 8) Reviewed date:07/20/2022 05:35:23 PM Interpretation:Normal Performing Lab: Notes/Report: Testing performed at: [facility], [address] [place] [address], [phone], Pickle Cutter: Mone Quiñonez MD CLIA ID# [id number] Na 144 136 - 145 mmol/L K 4.1 3.5 - 5.3 mmol/L Cl 104 98 - 110 mmol/L CO2 31 20 - 33 mEq/L Ca 9.5 8.7 - 10.4 mg/dL GLUC 79 83 - 110 mg/dL Glucose reference range based on fasting specimen. BUN 15.7 9.0 - 23.0 mg/dL CREA 1.0 0.5 - 1.4 mg/dL EGFR 56 >60 EGFRaa [address] ABDOMEN PELVIS ANGIOGRAM W AND/OR WO IV CONTRAST Reviewed date:09/01/2022 01:31:17 PM Interpretation:Abnormal Performing Lab: Notes/Report: Abnormal - Basic Metabolic Panel (BMP/Chem 8) Reviewed date:12/15/2022 02:41:53 PM Interpretation:Abnormal Performing Lab: Notes/Report: Testing performed at: [facility], [address] [place] [address], [phone], Pickle Cutter: Mnoe Quiñonez MD CLIA ID# [id number] Na 143 136 - 145 mmol/L K 4.3 3.5 - 5.3 mmol/L Cl 105 98 - 110 mmol/L CO2 27 20 - 33 mEq/L Ca 9.6 8.7 - 10.4 mg/dL GLUC 87 83 - 110 mg/dL Glucose reference range based on fasting specimen. BUN 13.6 9.0 - 23.0 mg/dL CREA 1.1 0.5 - 1.4 mg/dL EGFR_CKD 53 >60 Reported eGFR is based on the CKD-EPI 202 equation that does not use a race coefficient. - Complete Blood Count with diff (CBC) Reviewed date:02/17/2023 08:56:04 AM Interpretation:Normal Performing Lab: Notes/Report: Testing performed at: [facility], [address] [place] [address], [phone], Pickle Cutter: Mone Quiñonez MD CLIA ID# [id number] WBC 7.94 4.00 - 10.00 K/uL #NEUT 4.67 1.90 - 8.00 K/uL %NEUT 58.8 40.0 - 74.0 % #LYMPH 2.40 0.90 - 5.20 K/uL %LYMPH 30.2 19.0 - 48.0 % #MONO 0.50 0.16 - 1.00 K/uL %MONO 6.3 4.0 - 12.0 % #EOS 0.28 0.00 - 0.80 K/uL %EOS 3.5 0.0 - 7.0 % #BASO 0.07 0.00 - 0.20 K/uL %BASO 0.9 0.0 - 1.5 % #IG 0.02 0.00 - 0.50 K/uL %IG 0.3 0.0 - 5.0 % #NRBC 0.00 0.00 - 0.01 K/uL %NRBC 0.0 0.0 - 0.2 % RBC 4.35 4.20 - 5.00 M/uL HGB 13.3 12.1 - 15.1 g/dL HCT 40.6 37.0 - 47.0 % MCV 93.3 81.0 - 99.0 fL MCH 30.6 27.0 - 31.0 pg MCHC 32.8 32.0 - 36.0 g/dL RDW-CV 13.0 11.5 - 14.0 % PLT 155 130 - 400 K/uL MPV 12.0 9.0 - 12.0 fL - Comprehensive Metabolic Panel (CMP/Chem 14) Reviewed date:02/17/2023 08:56:14 AM Interpretation:Abnormal Performing Lab: Notes/Report: Testing performed at: [facility], [address] [place] [address] [place], [phone], Pickle Cutter: Mone Quiñonez MD CLIA ID# [id number] Na 143 136 - 145 mmol/L K 4.0 3.5 - 5.3 mmol/L Cl 105 98 - 110 mmol/L CO2 27 20 - 33 mEq/L Ca 9.6 8.7 - 10.4 mg/dL GLUC 80 83 - 110 mg/dL Glucose reference range based on fasting specimen. BUN 9.3 9.0 - 23.0 mg/dL CREA 1.0 0.5 - 1.4 mg/dL ALB 4.1 3.4 - 5.5 g/dL ALP 90 40 - 150 U/L T BILI 0.4 0.2 - 1.5 mg/dL AST 21 3 - 50 U/L ALT 12 3 - 60 U/L TP 7.0 6.0 - 8.3 g/dL EGFR_CKD 59 >60 Reported eGFR is based on the CKD-EPI 2020 equation that does not use a race coefficient. - Direct LDL Reviewed date:02/17/2023 08:56:22 AM Interpretation:Normal Performing Lab: Notes/Report: Testing performed at: [facility], [address] [place] [address], [phone], Pickle Cutter: Mone Quiñonez MD CLIA ID# [id number] DLDL 58.0 0.0 - 99.0 mg/dL - Lipid Panel Reviewed date:02/22/2023 10:28:12 AM Interpretation:Normal Performing Lab: Notes/Report: Testing performed at: [facility], [address] [place] [address], [phone], Pickle Cutter: Mone Quiñonez MD CLIA ID# [id number] CHOL 129 112 - 200 mg/dL HDL 50 45 - 65 mg/dL TRIG 162 0 - 149 mg/dL LDL 47 0 - 129 Ratio Chol/HDL 2.6 3.7 - 6.7 Ratio VLDL 32 0 - 40 Ratio - TSH Reviewed date:02/17/2023 08:56:36 AM Interpretation:Normal Performing Lab: Notes/Report: Testing performed at: [facility], [address] [place] [address], [phone], Pickle Cutter: Mone Quiñonez MD CLIA ID# [id number] TSH 0.63 0.35 - 5.50 uIU/mL NT PRO BNP Date Value Ref Range Status 10/18/2020 859 (H) 0 - 450 pg/mL Final Cardiac Tests: EC11/28/22 Last Echo: 10/17/20 Last stress test: Last cardiac catheterization: Assessment and Plan: 1. Coronary artery disease involving [place] coronary artery of [place] heart with angina pectoris (HCC) 2. Mixed hyperlipidemia 3. Primary hypertension 4. PVD (peripheral vascular disease) (HCC) Fitz Street is doing well. She is warm and dry. She is on appropriate medications. Her lipids are controlled. Her blood pressure at home is normotensive. No diagnostic or therapeutic intervention is recommended. If or when the patient needs to undergo carotid enterectomy she may proceed without additional cardiac testing unless her cardiac symptoms change. I would like to reassess in 1 year. I reviewed my assessment and plan with Fitz Street . All questions were answered. NOTE: This report was transcribed using voice recognition software. Every effort was made to ensure accuracy; however, inadvertent computerized early childhood director errors may be present. documented in this encounter [facility] 01-26-2023 Telephone encounter Note Amlodipine 5mg Pharmacy on file[facility] OV-11/28/2022 [facility] 01-26-2023 Miscellaneous Notes Amlodipine 5mg Pharmacy on file[facility] OV-11/28/2022 documented in this encounter [facility] 10-19-2020 Note Hospital Discharge [address] : 1945 ADMIT DATE: 10/17/2020 DISCHARGE DATE: 10/19/2020 PRIMARY CARE PHYSICIAN: Nilesh Newton MD VISIT STATUS: Admission CODE STATUS: DNR-CCA DISCHARGE DIAGNOSES: Active Problems: PVD (peripheral vascular disease) ([facility]) Hyperlipidemia TIA (transient ischemic attack) Hypertensive emergency Bilateral carotid artery stenosis Ischemic stroke (HCC) Acute respiratory insufficiency TRAVIS (acute kidney injury) ([facility]) Resolved Problems: * No resolved hospital problems. * HOSPITAL COURSE: The patient had just been discharged from the [facility] on 10/17 after a Right BERTRAM. Upon getting home family noticed left side weakness and confusion. On arrival to the hospital she was seen by neurology and was not a tPA candidate. She was also noted to be hypertensive with a slightly elevated troponin. She was placed on a cardene drip that was rapidly weaned off. Ortho evaluated the patient and stated WBAT and to start ASA BID for DVT ppx. She was seen by cardiology. Had a normal echo. She was seen by vascular who recommended surgical repair of worsened Left ICA stenosis that was seen on CT of the head/neck. Neurology had followed the patient since admission. As part of the evaluation the MRI showed a right cerebral infraction. On the the patient along with her daughter had a long discussion about her wishes in terms of how aggressive she would like her care to be. Ultimately she decided that she would not want further investigation into her stroke and declined a MP, she also did not want any surgical repair of her left ICA. She also wanted to be DNR CCA. The patient declined IP therapy and wished to be discharged home. Family would be staying with her. CONSULTANTS: Neurology, Cardiology, Vascular DISCHARGE MEDICATIONS: Fitz Street Home Medication Instructions DANICA:[id number] Printed on:10/19/20 9544 Medication Information ALLOPURINOL PO Take 75 mg by mouth daily aspirin 81 MG tablet Take 81 mg by mouth daily 2 daily-one morning and one at night Cholecalciferol (VITAMIN D3) 2000 units CAPS Take by mouth clopidogrel (PLAVIX) 75 MG tablet Take 1 tablet by mouth daily famotidine (PEPCID) 20 MG tablet Take 20 mg by mouth daily lisinopril (PRINIVIL;ZESTRIL) 30 MG tablet Take 1 tablet by mouth daily metoprolol succinate (TOPROL XL) 100 MG extended release tablet Take 100 mg by mouth daily mirtazapine (REMERON) 30 MG tablet Take 1 tablet by mouth nightly oxyCODONE-acetaminophen (PERCOCET) 5-325 MG per tablet Take 1 tablet by mouth every 4 hours as needed for Pain. pravastatin (PRAVACHOL) 40 MG tablet Take 40 mg by mouth daily tiotropium (SPIRIVA RESPIMAT) 2.5 MCG/ACT AERS inhaler Inhale 2 puffs into the lungs daily venlafaxine (EFFEXOR XR) 75 MG extended release capsule Take 1 capsule by mouth daily (with breakfast) DIET: Cardiac ACTIVITY: up with assist SIGNIFICANT DIAGNOSTIC STUDIES: See above PENDING STUDIES: None RECOMMENDED NEXT STEPS: Home healthcare, home PT/OT, follow up with ortho and PCP DISPOSITION: Home FACILITY/HOME CARE AGENCY NAME: to be established Follow up with Nilesh Newton MD injection molding supervisor for follow up SIGNED: Tyrese Monzon 10/19/2020, 5:57 PM [facility] 10-19-2020 Hospital Discharg Tyrese Kemp APRN - CNP - 10/19/2020 5:57 PM EDT Good nutrition is important when healing from an illness, injury, or surgery. Follow any nutrition recommendations given to you during your hospital stay. If you were given an oral nutrition supplement while in the hospital, continue to take this supplement at home. You can take it with meals, in-between meals, and/or before bedtime. These supplements can be purchased at most local grocery stores, pharmacies, and chain [employer]stores. If you have any questions about your diet or nutrition, call the hospital and ask for the dietitian. Lisa Bunn RN - 10/19/2020 5:57 PM EDT Continuity of Care Form Patient Name: Fitz Street : 1945 Admit date: 10/17/2020 Discharge date: 10/19/20 Code Status Order: DNR-CCA Advance Directives: Admitting Physician: Shun Adamson MD PCP: Nilesh Newton MD Discharging Nurse: Lisa Bunn Discharging Hospital Unit/Room#: T225/V21942 Discharging Unit Emergency Contact: Extended Emergency Contact Information Primary Emergency Contact: Nica Minaya [facility] Relation: Child Footwear Stitcher needed? No Secondary Emergency Contact: Susanne Elizondo Relation: Child Footwear Stitcher needed? No Past Surgical History: Past Surgical History: Procedure Laterality Date CATARACT REMOVAL CHOLECYSTECTOMY, LAPAROSCOPIC 02/08/2020 Dr. Mccauley CORONARY ANGIOPLASTY WITH STENT PLACEMENT DIAGNOSTIC CARDIAC PATIENT SUPPORT TECH PROCEDURE 2010 stent x 1 FEMORAL BYPASS Bilateral 03/03/2015 [facility], 3 stents each side femoral HYSTERECTOMY, TOTAL ABDOMINAL KNEE ARTHROSCOPY Right PTCA PCI to LAD 2010 VASCULAR SURGERY Immunization History: Immunization History Administered Date(s) Administered Influenza, MDCK Quadv, IM, PF (Flucelvax 4 yrs and older) 08/02/2016, 05/06/2018 Pneumococcal Conjugate Vaccine 06/26/2014 Active Problems: Patient Active Problem List Diagnosis Code Chest pain on exertion R07.9 SOB (shortness of breath) on exertion R06.02 Dizziness R42 GERD (gastroesophageal reflux disease) K21.9 PVD (peripheral vascular disease) ([facility]) I73.9 Coronary artery disease involving [place] coronary artery of [place] heart with angina pectoris ([facility]) I25.119 Abdominal aortic aneurysm ([facility]) I71.4 Hypertension I10 Hyperlipidemia E78.5 Osteoarthrosis M19.90 Osteoporosis M81.0 Shortness of breath R06.02 Tremulousness R25.1 Depression with anxiety F41.8 Insomnia due to other mental disorder F51.05, F99 Weight loss R63.4 Hyponatremia E87.1 COPD exacerbation ([facility]) J44.1 Acute exacerbation of COPD with asthma ([facility]) J44.1, J45.901 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 TIA (transient ischemic attack) G45.9 Hypertensive emergency I16.1 Bilateral carotid artery stenosis I65.23 Ischemic stroke ([facility]) I63.9 Acute respiratory insufficiency R06.89 TRAVIS (acute kidney injury) ([facility]) N17.9 Isolation/Infection: Isolation No Isolation Patient Infection Status None to display Nurse Assessment: Last Vital Signs: BP (!) 155/84 Pulse 67 Temp 98 F (36.7 C) (Temporal) Resp 16 Ht 5' 1 (1.549 m) Wt 125 lb (56.7 kg) SpO2 98% BMI 23.62 kg/m Last documented pain score (0-10 scale): Pain Level: 0 Last Weight: Wt Readings from Last 1 Encounters: 10/18/20 125 lb (56.7 kg) Mental Status: {IP PT MENTAL STATUS:68714:::0} IV Access: { MYESHA IV ACCESS:864046623:::0} Nursing Mobility/ADLs: Walking {CHP DME ADLs:538342025:::0} Transfer {CHP DME ADLs:252048127:::0} Bathing {CHP DME ADLs:833022357:::0} Dressing {CHP DME ADLs:850327917:::0} Toileting {CHP DME ADLs:618441660:::0} Feeding {CHP DME ADLs:964515536:::0} Continuous Mining Machine Lode Miner {CHP DME ADLs:977459164:::0} Med Delivery { MYESHA MED Delivery:062861912:::0} Wound Care Documentation and Therapy: Elimination: Continence: Bowel: yes Bladder: yes Urinary Catheter: no Colostomy/Ileostomy/Ileal Conduit: no Date of Last BM: Intake/Output Summary (Last 24 hours) at 10/19/2020 1757 Last data filed at 10/19/2020 1700 Gross per 24 hour Intake 1958 ml Output 2500 ml Net -541 ml I/O last 3 completed shifts: In: 1958 [I.V.:1958] Out: 2400 [Urine:2400] Safety Concerns: { MYESHA Safety Concerns:815430758:::0} Impairments/Disabilities: { MYESHA Impairments/Disabilities:01342566 3:::0} Nutrition Therapy: Current Nutrition Therapy: { MYESHA Diet List:173337467:::0} Routes of Feeding: po Liquids: thin liquids Daily Fluid Restriction: n/a Last Modified Barium Swallow with Video (Video Swallowing Test):n/a Treatments at the Time of Hospital Discharge: Respiratory Treatments: Oxygen Therapy: Room air Ventilator: n/a Rehab Therapies: {THERAPEUTIC INTERVENTION:0091919304} Weight Bearing Status/Restrictions: WBAT Other Medical Equipment (for information only, NOT a DME order): {EQUIPMENT:273784075} Other Treatments: Patient's personal belongings (please select all that are sent with patient): Patient belongings with daughter RN SIGNATURE: Lisa Bunn RN CASE MANAGEMENT/SOCIAL WORK SECTION Inpatient Status Date: Readmission Risk Assessment Score: Readmission Risk Risk of Unplanned Readmission: 18 Discharging to Facility/ Agency Name: Address: Phone: Fax: Dialysis Facility (if applicable) Name: Address: Dialysis Schedule: Phone: Fax: Director Of Market Analysis/Tool Die Maker signature: {Esignature:[id number]:::0} PHYSICIAN SECTION Prognosis: {Prognosis:4560766901:::0} Condition at Discharge: {MH Patient Condition:453968029:::0} Rehab Potential (if transferring to Rehab): {Prognosis:3037916042:::0} Recommended Labs or Other Treatments After Discharge: Physician Certification: I certify the above information and transfer of [address] is necessary for the continuing treatment of the diagnosis listed and that she requires {Admit to Appropriate Level of Care:84513:::0} for {GREATER/LESS:856073525} 30 days. Update Admission H&P: {CHP DME Changes in HandP:726751178:::0} PHYSICIAN SIGNATURE: {Esignature:[id number]:::0} Raven Mercado RN - 10/18/2020 Images from the original note were not included. Refer to the Understanding Stroke Booklet given to you, written material provided to patient/family, addressing all signs & symptoms of a stroke, which are: sudden numbness or weakness, especially on one side of the body sudden confusion sudden difficulty speaking or understanding sudden loss of vision sudden dizziness or loss of balance or coordination sudden severe headache Explained the need to call EMS ([phone]) immediately if signs & symptoms occur. Discussed medications that the patient is taking, will review medications again prior to discharge, risk factors, and the need for follow-up with a physician/UNDERWRITER/PA after discharge. Discussed the patient s personal risk factors for Stroke /TIA with patient/family, and ways to reduce the risk for a recurrent stroke. Patient's personal risk factors which were identified are: [x] High blood pressure [x] High cholesterol [] Atrial fibrillation [] Diabetes [x] Smoking Hip Replacement (Posterior) Precautions: What to Expect at Home Your Recovery Hip replacement surgery replaces the worn parts of your hip joint. You will need to be careful to protect your new joint after hip replacement surgery. Along with doing your physical therapy exercises, there are many things you can do to help your hip heal. Your recovery may be faster if you follow these precautions. Try to keep your hip within the safe positions while it heals. Some leg and foot movements may increase the risk of dislocating your hip. Try to avoid those positions. How can you care for yourself at home? What are some precautions for self-care after hip replacement surgery (posterior)? 1. Keep your toes pointing forward or slightly out. Don't rotate your leg too far to the inside. 2. Do not bend your hip more than 90 degrees. 3. Keep your knees apart. Don't cross your legs. Hip Replacement (Posterior) Precautions: Don't bend your hip too far 1. Don't lean forward while you sit down or stand up, and don't bend past 90 degrees (like the angle in a letter L ). This means you can't try to grain picker something off the floor or bend down to tie your shoes. 2. Don't lift your knee higher than your hip. 3. Don't sit on low chairs, beds, or toilets. You may want to use a raised toilet seat for a while. Sit in chairs with arms. Hip Replacement (Posterior) Precautions: Don't cross your legs 1. Imagine there's a line running down the middle of your body. Keep your legs from crossing over it. 2. When you get into a car, back up to the seat of the car, and then sit and slide across the seat toward the middle of the car with your knees about 12 inches apart. A plastic bag on the seat can help you slide in and out of the car. 1. Don't cross your legs when you sit. 2. Don't cross your ankles while lying down. 3. It may help to keep a pillow between your knees when you're in bed. Other tips Go slowly when you climb stairs. Make sure the lights are on. Have someone watch you, if you can. When you climb stairs: ? Step up first with your unaffected leg. Then bring the affected leg up to the same step. Bring your crutches or cane up. ? To go down stairs, reverse the order. First, put your crutches or cane on the lower step. Then bring the affected leg down to that step. Finally, step down with the unaffected leg. You can ride in a car, but stop at least once every hour to get out and walk around. You may want to sleep on your back. Don't reach down too far to pull up blankets when you lie in bed. If your doctor recommends exercises, do them as directed. You can cut back on your exercises if your muscles start to ache, but don't stop doing them. Follow-up care is a devlin part of your treatment and safety. Be sure to make and go to all appointments, and call your doctor if you are having problems. It's also a good idea to know your test results and keep a list of the medicines you take. When should you call for help? Call 911 anytime you think you may need emergency care. For example, call if: You passed out (lost consciousness). You have sudden chest pain and shortness of breath, or you cough up blood. You have severe pain in your chest. Call your doctor now or seek immediate medical care if: You have signs that your hip may be dislocated, including: ? Severe pain and not being able to stand. ? A crooked leg that looks like your hip is out of position. ? Not being able to bend or straighten your leg. Your leg or foot turns cold or changes color. You have tingling, weakness, or numbness in your leg or foot. You have signs of a blood clot, such as: ? Pain in your calf, back of the knee, thigh, or groin. ? Redness and swelling in your leg or groin. You have pain that does not get better after you take pain medicine. Your incision opens and starts to bleed, or there's more bleeding. You have signs of infection, such as: ? Increased pain, swelling, warmth, or redness. ? Red streaks leading from the incision. ? Pus draining from the incision. ? A fever. Watch closely for changes in your health, and be sure to contact your doctor if: You do not have a bowel movement after taking a laxative. You do not get better as expected. Where can you learn more? Go to [email or web address] and sign in to your [employer] account. Enter A959 in the Search Health Information box to learn more about Hip Replacement (Posterior) Precautions: What to Expect at Home. If you do not have an account, please click on the Sign Up Now link. Current as of: May 11, 2020 Content Version: 12.8 [employer]. Care instructions adapted under license by [employer]. If you have questions about a medical condition or this instruction, always ask your healthcare professional. [employer] disclaims any warranty or liability for your use of this information. [] Overweight [x] Lack of Exercise [] Sleep apnea [x] Prior heart disease or heart attack [] Excessive alcohol use [] Use of illicit drugs [] Personal history of previous TIA or stroke [] Family history of stroke or heart disease [x] Carotid stenosis [] Heart failure [] Patent Foramen Ovale [] Migraine [] Hormone replacement therapy [] Current (up to six weeks post ) [] Depression [] Sickle Cell [] Renal insufficiency - chronic [] None Refer to Understanding Stroke Booklet. Advised patient that risk for stroke/TIA can be reduced by modifying/controlling risk factors. Patient advised to take medications as prescribed, which will be detailed in the discharge instructions, and to not stop taking them without consulting a physician. In addition, pt. advised to maintain a healthy diet, exercise regularly and to not smoke. The following attachments cannot be sent through Care Everywhere.Stroke ([place] Ze[place]ander)documented in this encounter [facility] Work Phone: 10-19-2020 History of Presen t illness Narrative CTSP re patient wanting to go home. The patient continues to be A&Ox3, GCS 15. She is aware that neurology wishes to pursue a MP as part of the stroke work up and vascular is considering surgical repair of her left ICA. She is not interested in further invasive work up or surgical management and wants only medical management. She is aware that PT is recommending IP rehab. The patients daughter is at bedside and states that she and other family members will be staying with the patient. They have a bed downstairs along with a walker available. They also have PT that was ordered after the right BERTRAM. She will follow up with her PCP, ortho and other specialists. Will also send a DNR CCA form home with patient. Also contacted [facility] who will contact Home health care to see patient. PROGRESS NOTE. NEUROCRITICAL CARE Patient Name:Fitz Street Patient : 1945 Acct: [id number] Date of Admission: 10/17/2020 Room/Bed: T225/R27528 PCP: Nilesh Newton MD Patient location ICU Remains in the hospital awaiting plan on disposition, placement, Subjective:75yo PMH HTN, HPL, GERD, bilateral MARIBEL, PVD (femoral stents 2014), AAA, COPD, arthritis, tobacco use, anxiety/depressions presented 10/17/20 with L sided weakness, slurred speech, and confusion. This occurred after being discharged home from the hospital s/p hip replacement. Stroke team activated but not TPA cendidate 2/2 LKW well. M2-3 branch and unable for thrombectomy. Admitted for CEA by vascular when able per Dr Leiva. New Complaint:First time seen by me, examined pt alongside Dr Samuel. She was up and awake and alert in the chair without complaints. States that she was feeling better. MRI pending, MP pending Sedation:No Diet/TF:regular NPO at midnight Lorenzo: No VTE prophylaxis: YES Lovenox Antithrombotic therapy in first 24 hrs: Contraindicated because LKW Statin therapy for stroke stroke patients: High intensity Anticoagulation on AF patients: N/A no history of AF Activity: PT/OT Disposition: TBD Current Hospital Medications: Current Facility-Administered Medications: perflutren lipid microspheres (DEFINITY) injection 1.65 mg, 1.5 mL, Intravenous, ONCE PRN, NESSA Ford CNP sodium chloride flush 0.9 % injection 5-40 mL, 5-40 mL, Intravenous, PRN, NESSA Ford CNP clopidogrel (PLAVIX) tablet 75 mg, 75 mg, Oral, Daily, Danni Trinh, DO, 75 mg at 10/19/20 0753 sodium chloride flush 0.9 % injection 5-40 mL, 5-40 mL, Intravenous, 2 times per day, Danni Ali, DO, 10 mL at 10/19/20 075 sodium chloride flush 0.9 % injection 5-40 mL, 5-40 mL, Intravenous, PRN, Danni Trinh, DO ondansetron (ZOFRAN) injection 4 mg, 4 mg, Intravenous, Q6H PRN, Danni Trinh, DO atorvastatin (LIPITOR) tablet 40 mg, 40 mg, Oral, Nightly, Danni Trinh, DO, 40 mg at 10/18/202033 labetalol (NORMODYNE;TRANDATE) injection 10 mg, 10 mg, Intravenous, Q10 Min PRN, NESSA Sparrow CNP, 10 mg at 10/19/20828 senna (SENOKOT) tablet 8.6 mg, 1 tablet, Oral, Daily PRN, Danni Trinh DO mirtazapine (REMERON) tablet 30 mg, 30 mg, Oral, Nightly, Danni Trinh, DO, 30 mg at 10/18/202033 venlafaxine (EFFEXOR XR) extended release capsule 150 mg, 150 mg, Oral, Daily, Danni Trinh, DO, 150 mg at 10/19/20 075 0.9 % sodium chloride infusion, 25 mL, Intravenous, PRN, Danni Trinh, DO magnesium hydroxide (MILK OF MAGNESIA) 400 MG/5ML suspension 30 mL, 30 mL, Oral, Daily PRN, Danni Trinh, DO ipratropium-albuterol (DUONEB) nebulizer solution 1 ampule, 1 ampule, Inhalation, Q4H PRN, Danni Trinh, DO tiotropium (SPIRIVA) inhalation capsule 18 mcg, 1 capsule, Inhalation, Daily, NESSA Sparrow CNP, 18 mcg at 10/19/20 0753 famotidine (PEPCID) tablet 20 mg, 20 mg, Oral, Daily, NESSA Sparrow CNP, 20 mg at 10/19/20 0753 aspirin chewable tablet 81 mg, 81 mg, Oral, BID, Barry Crooks MD, 81 mg at 10/19/20 0753 acetaminophen (TYLENOL) tablet 1,000 mg, 1,000 mg, Oral, 3 times per day, NESSA Sparrow CNP, 1,000 mg at 10/19/20 1053 oxyCODONE (ROXICODONE) immediate release tablet 5 mg, 5 mg, Oral, Q6H PRN, NESSA Sparrow CNP lidocaine 4 % external patch 1 patch, 1 patch, Transdermal, Daily, NESSA Sparrow CNP, 1 patch at 10/19/20 0809 metoprolol succinate (TOPROL XL) extended release tablet 50 mg, 50 mg, Oral, Daily, NESSA Sparrow CNP, 50 mg at 10/19/20 0805 Continuous Infusions: sodium chloride Allergies: Levaquin [levofloxacin in d5w] and Morphine and related Review of Systems Neurological: Positive for speech difficulty and weakness. Constitutional: Negative for chills and fever. HENT: Negative for congestion, rhinorrhea and sore throat. Respiratory: Negative for cough, shortness of breath and wheezing. Cardiovascular: Negative for chest pain, palpitations and leg swelling. Gastrointestinal: Negative for abdominal distention, abdominal pain, constipation, diarrhea, nausea and vomiting. Musculoskeletal: Positive for gait problem. Neurological: Negative for dizziness, syncope, light-headedness, numbness and headaches. Psychiatric/Behavioral: Negative for agitation. The patient is not nervous/anxious. Objective: Telemetry: Arrhythmia:No Physical Examination: Patient Vitals for the past 8 hrs: BP Temp Pulse Resp SpO2 10/19/20 1300 (!) 135/90 71 19 96 % 10/19/20 1200 (!) 131/91 98.1 F (36.7 C) 68 16 97 % 10/19/20 1100 (!) 143/89 69 19 98 % 10/19/20 1000 125/65 73 18 95 % 10/19/20 0900 (!) 160/95 74 15 96 % 10/19/20 0800 (!) 171/94 74 19 96 % 10/19/20 0700 (!) 178/83 72 16 96 % I/O last 3 completed shifts: In: 1958 [I.V.:1958] Out: 2574 [Urine:2575] General Physical Examination: General:alert, comfortable and cooperative HEENT:Normocephalic, atraumaticl CV: S1+S2, RRR, no MRG. Pulm:CTA b/l, unlabored Abdomen: Soft NT/ND. BS + Skin: bilateral lower extremity mottling Extremities: normal with no edema or cyanosis Orthopedic limitation; N/A Pulses: Intact peripherally Carotid auscultation :No bruits Neurological Examination: Higher Functions: Mental Status Exam: Level of Alertness:Awake Orientation: Normal toself, time, place Memory: Normal Fund of Knowledge: Normal Language: Normal Dysarthria not present Cranial Nerves: -II Visual acuity: normal -II Visualfields: normal -III Pupils (~ 3 mm OD, 3 mm OU) equal, round, reactive to light -III-IV- Extraocular Movements: intact -Nystagmus not present -Saccades and pursuits normal -V Facial sensation: intact Corneal's Intact bilateral -VII Facial strength:intact -VIII Hearing: intact -IX-X - Gag reflex present -X Palate: intact -XI Shoulder shrug: intact -XII Tongue movement: normal MotorExamination: Tone after evaluation of 4 limbs, the following findings applied: Normal -Bulk: generalized atrophy due to malnourishment and deconditioning -Muscle Stretch afterevaluation of all limbs, and axial musculature the following findings applied: Drift: present - LUE pronator drift -Reflexes: after evaluation of 4 limbs, the following findings applied ; normal all limbs -Plantar responce: Flexor bilaterally Sensory Extinction of Lside intermittently Coordination: Arms Normal finger to nose Legs Intact heel knee meade testing Tremors not present Gait abnormal, patient unable to walk due to acute circumstances / bed rest / safety concerns NIHSS 1a Level of consciousness: 0=alert; keenly responsive 1b. LOC questions: 0=Performs both tasks correctly 1c. LOC commands: 0=Performs both tasks correctly 2. Best Gaze: 0=normal 3. Visual: 0=No visual loss 4. Facial Palsy: 0=Normal symmetric movement 5a. Motor left arm: 1 5b. Motor right arm: 0=No drift, limb holds 90 (or 45) degrees for full 10 seconds 6a. motor left le=No drift, limb holds 90 (or 45) degrees for full 10 seconds 6b Motor right le=No drift, limb holds 90 (or 45) degrees for full 10 seconds 7. Limb Ataxia: 0=Absent 8. Sensory: 1 9. Best Language: 0=No aphasia, normal 10. Dysarthria: 0=Normal 11. Extinction and Inattention: 1 12. Distal motor function: 0=Normal Total: 3 ANCILLARY Last 24hrs Recent Results (from the past 24 hour(s)) Troponin Collection Time: 10/18/20 6:22 PM Result Value Ref Range Troponin I 0.414 (H) 0.000 - 0.034 ng/mL CBC auto differential Collection Time: 10/19/20 4:37 AM Result Value Ref Range WBC 7.8 3.6 - 10.7 10*3/uL RBC 3.55 (L) 3.80 - 5.20 10*6/uL Hemoglobin 10.5 (L) 11.7 - 16.0 g/dL Hematocrit 32.1 (L) 35.0 - 47.0 % MCV 90.6 79.0 - 98.0 fL MCH 29.7 26.0 - 34.0 pg MCHC 32.7 32.0 - 36.0 % RDW 14.5 11.5 - 14.5 % Platelets 120 (L) 140 - 440 10*3/uL MPV 9.6 7.4 - 10.4 fL Granulocytes % 68.5 40.0 - 80.0 % Lymphocyte % 21.6 20.0 - 40.0 % Monocytes 6.0 2.0 - 10.0 % Eosinophils 3.2 1.0 - 6.0 % Basophils 0.7 0.0 - 2.0 % Absolute Neut # 5.3 1.8 - 7.0 10*3/uL Absolute Lymph # 1.7 1.0 - 4.3 10*3/uL Absolute Meeker # 0.5 0.0 - 0.8 10*3/uL Absolute Eos # 0.3 0.0 - 0.5 10*3/uL Absolute Baso # 0.1 0.0 - 0.2 10*3/uL Magnesium Collection Time: 10/19/20 4:37 AM Result Value Ref Range Magnesium 1.6 1.6 - 2.3 mg/dL Phosphorus Collection Time: 10/19/20 4:37 AM Result Value Ref Range Phosphorus 2.9 2.5 - 4.5 mg/dL Calcium, Ionized Collection Time: 10/19/20 4:37 AM Result Value Ref Range Ionized Ca 4.20 (L) 4.30 - 5.20 mg/dL pH, Bld 7.42 7.31 - 7.46 NA CK Collection Time: 10/19/20 4:37 AM Result Value Ref Range Total CK 295 (H) 30 - 170 U/L Comprehensive Metabolic Panel w/ Reflex to MG Collection Time: 10/19/20 4:37 AM Result Value Ref Range Sodium 140 135 - 145 mmol/L Potassium 3.7 3.5 - 5.1 mmol/L Chloride 108 (H) 98 - 107 mmol/L CO2 28 22 - 30 mmol/L Anion Gap 3 3 - 13 mmol/L Glucose 85 70 - 100 mg/dL BUN 12 7 - 20 mg/dL CREATININE 0.63 0.52 - 1.25 mg/dL eGFR >90.0 >60 mL/min EGFR IF NonAfrican Luxembourger 87.5 >60 mL/min Calcium 8.7 8.4 - 10.4 mg/dL Albumin,Serum 3.0 (L) 3.5 - 5.0 g/dL Total Protein 5.8 (L) 6.3 - 8.2 g/dL Total Bilirubin 0.6 0.2 - 1.3 mg/dL Alkaline Phosphatase 89 38 - 126 U/L ALT 12 0 - 34 U/L AST 40 15 - 46 U/L Recent Labs 10/19/20 0437 PH 7.42 Cultures: Blood culture #1: No results for input(s): BC in the last 72 hours. Blood culture #2: No results for input(s): BLOODCULT2 in the last 72 hours. Antiepileptic levels: No results for input(s): PHENYTOIN, CARBTOT, PHENOBARB, VALPROATE in the last 72 hours. Invalid input(s): LAMOTRIG, KEPPRA Coagulation: Recent Labs 10/18/20 0014 INR 1.0 Stroke Specific: Lipids: Recent Labs 10/18/20 1230 CHOL 105 LDLCHOLESTEROL 33 TRIG 147 HDL 43 HgA1c: Recent Labs 10/18/20 1230 LABA1C 5.3 Radiology: EKG 10/18/20:Measurements Intervals [place] Rate: 67 P: 74 W[place]: 142 QRS: 4 QRSD: 88 T: 72 QT: 508 QTc: 537 Interpretive Statements Sinus rhythm Probable left atrial enlargement Abnormal R-wave progression, early transition LVH with secondary repolarization abnormality Prolonged QT interval ECHO 10/18/20:SUMMARY: 1. Left ventricle: The cavity size is normal. Wall thickness is normal. Systolic function is normal by visual assessment. The estimated ejection fraction is 65%. 2. Aortic valve: Trileaflet; mildly calcified leaflets. There is no regurgitation.LEFT ATRIUM: The atrium is normal in size. RIGHT ATRIUM: The atrium is normal in size. ATRIAL SEPTUM: Color Doppler shows no shunt MP:pending CTH 10/18/20: IMPRESSION: No acute intracranial process. Bilateral caudate head and right frontal deep white matter remote lacunar infarcts. Atrophy and chronic small vessel white matter ischemic changes. Aspects score of 10. CTA/CTP 10/18/20: IMPRESSION: Tiny focus of right parietal-occipital ischemia on perfusion images. No anterior, middle or posterior intracranial arterial thromboembolism is evident. Bilateral carotid bifurcation atherosclerotic calcifications with severe proximal bilateral ICA stenosis, left greater than right as detailed above. Dominant left vertebral artery. Perfusion images were discussed with Dr. Samuel at approximately 0100 hours. Delay in arrival of CTA head/neck images was due to technical factors and MRI:pending read ASSESSMENT / PLAN/RECOMMENDATIONS: Acute ischemic stroke, right parietal stroke likely atheroembolic from R ICA stenosis Hypertensive emergency Elevated troponin likely demand ischemia Elevated CK in setting of recent orthopedic procedure TRAVIS Bilateral carotid artery stenosis - 70-79% (vascular surgery discussed fixing it with patient but patient opted nonsurgical management) Recent total right replacement at [facility] (10/16/20) PVD s/p femoral stenting (2014 at [facility], 6 total stents) Small stable AAA - yearly surveillance with Dr. Leiva Tobacco abuse - 1 pack a day Hyperlipidemia CAD s/p remote stent 2010 GERD PLAN -MP pending for tomorrow -NPO @ midnight -okay to go to floor -SBP goal <160 -continue DAPT -lovenox started 40mg daily -fluids 75cc/hr Okay to go to floor. Will follow. Patient seen and discussed with Dr. Samuel CARDIOLOGY PROGRESS NOTE Chart and interval events reviewed. Reason for Visit [address] 75 y.o. known coronary artery disease status post remote stenting in 2010, significant peripheral vascular disease, status post femoral artery stents at the [facility], a stable abdominal aortic aneurysm and stable carotid stenosis right hip replacement on 10/16/20, presented to [facility] today with left-sided weakness and dysarthria. CTA revealed a right parietal/occipital area of ischemia but TPA was not given due to recent surgeryShe continues to smoke one pack of cigarettes a day. Cardiology service was called for increased troponin of 0.3. Patient's BP was found elevated at 201/89 mmHg. In the setting of recent surgery, acute stroke, hypertensive emergency and no chest pain, was thought is likely supply demand-ischemia. Cardiology was called for further eval. SUBJECTIVE: Fitz Street states She is currently working with PT in her room. She is doing well today. She states that she feels better and will likely be going home today or tomorrow. She denies chest pain, shortness of breath, palpitations, PND and orthopnea. She has not had any dizziness or lightheadedness. Her only deficit is the left arm SCHEDULED MEDICATIONS: clopidogrel 75 mg Oral Daily sodium chloride flush 5-40 mL Intravenous 2 times per day atorvastatin 40 mg Oral Nightly mirtazapine 30 mg Oral Nightly venlafaxine 150 mg Oral Daily tiotropium 1 capsule Inhalation Daily famotidine 20 mg Oral Daily aspirin 81 mg Oral BID acetaminophen 1,000 mg Oral 3 times per day lidocaine 1 patch Transdermal Daily metoprolol succinate 50 mg Oral Daily Active Problems: TIA (transient ischemic attack) Hypertensive emergency Bilateral carotid artery stenosis Ischemic stroke (HCC) Resolved Problems: * No resolved hospital problems. * Review of Systems: Review of Systems Constitutional: Negative for chills, diaphoresis and fever. Respiratory: Negative for cough, shortness of breath and wheezing. Cardiovascular: Negative for chest pain, palpitations and leg swelling. Gastrointestinal: Negative for abdominal pain, blood in stool, constipation, diarrhea, nausea and vomiting. Genitourinary: Negative for hematuria. Neurological: Positive for weakness. Negative for dizziness and syncope. Left arm VITAL SIGNS: Vitals: 10/19/20 1000 10/19/20 1100 10/19/20 1200 10/19/20 1300 BP: 125/65 (!) 143/89 (!) 131/91 (!) 135/90 Pulse: 73 69 68 71 Resp: 18 19 16 19 Temp: 98.1 F (36.7 C) TempSrc: SpO2: 95% 98% 97% 96% Weight: Height: Intake/Output Summary (Last 24 hours) at 10/19/2020 1424 Last data filed at 10/19/2020 1200 Gross per 24 hour Intake 1959 ml Output 2400 ml Net -441 ml Patient Vitals for the past 96 hrs (Last 3 readings): Weight 10/18/20 0427 125 lb (56.7 kg) 10/18/20 0017 132 lb (59.9 kg) Physical Exam: Physical Exam Constitutional: General: She is not in acute distress. Appearance: Normal appearance. She is well-developed. She is not diaphoretic. HENT: Head: Normocephalic. Mouth/Throat: Pharynx: No oropharyngeal exudate. Eyes: General: No scleral icterus. Right eye: No discharge. Left eye: No discharge. Pupils: Pupils are equal, round, and reactive to light. Neck: Musculoskeletal: Normal range of motion. Thyroid: No thyromegaly. Vascular: No JVD. Cardiovascular: Rate and Rhythm: Normal rate and regular rhythm. Chest Wall: PMI is not displaced. Pulses: Normal pulses. Heart sounds: Normal heart sounds. No murmur. No gallop. Pulmonary: Effort: No accessory muscle usage or respiratory distress. Breath sounds: Normal breath sounds. Abdominal: General: Bowel sounds are normal. There is no distension or abdominal bruit. Palpations: Abdomen is soft. There is no shifting dullness or hepatomegaly. Tenderness: There is no abdominal tenderness. Musculoskeletal: Normal range of motion. Skin: General: Skin is warm and dry. Neurological: Mental Status: She is alert and oriented to person, place, and time. Comments: Left arm weakness. Holds her hand in air Psychiatric: Mood and Affect: Mood normal. Data: Scheduled Meds: Reviewed Continuous Infusions: sodium chloride CBC: Recent Labs 10/18/20 0014 10/19/20 0437 WBC 10.8* 7.8 HGB 12.3 10.5* HCT 37.4 32.1* PLT 145 120* BMP: Recent Labs 10/18/20 0022 10/18/20 1230 10/19/20 0437 NA 139 139 140 K 3.7 3.3* 3.7 CL -- 104 108* CO2 -- 29 28 BUN -- 13 12 CREATININE 1.10 0.66 0.63 LABGLOM 48.9* -- -- INR: Recent Labs 10/18/20 0014 INR 1.0 No results for input(s): BNP in the last 72 hours. TSH: Lab Results Component Value Date TSH 0.949 07/11/2019 Cardiac Injury Profile: Recent Labs 10/18/20 0014 10/18/20 0014 10/18/20 0634 10/18/20 1230 10/18/20 1822 10/19/20436 CKTOTAL 551* -- -- -- -- 295* TROPONINI 0.349* < > 0.443* 0.454* 0.414* -- < > = values in this interval not displayed. Lipid Profile: Lab Results Component Value Date TRIG 147 10/18/2020 HDL 43 10/18/2020 LDLCALC 57 10/27/2017 CHOL 105 10/18/2020 CHOL 126 10/27/2017 EKG: Telemetry Reviewed: SR 60-70s Echo: 10/17/20 1. Left ventricle: The cavity size is normal. Wall thickness is normal. Systolic function is normal by visual assessment. The estimated ejection fraction is 65%. 2. Aortic valve: Trileaflet; mildly calcified leaflets. There is no Regurgitation. CTA of Head and NECK IMPRESSION: Tiny focus of right parietal-occipital ischemia on perfusion images. No anterior, middle or posterior intracranial arterial thromboembolism Bilateral carotid bifurcation atherosclerotic calcifications with Dominant left vertebral artery. Perfusion images were discussed with Dr. Samuel at approximately 0100 hours. Delay in arrival of CTA head/neck images was due to technical factors and she is aware of history of bilateral carotid bifurcation stenosis. IMPRESSIONS/RECOMMENDATIONS: 1. Elevated troponins in setting of HTN emergency, TIA -troponin trended down > 0.4.14 -remains on asa, plavix, metoprolol and lipitor -echo results: Normal EF, no valve disease 2. Hypertension -now improved with SBP range 125-143 DBP 65-91, -continues on home dose metoprolol XL 50, will add lisinopril since renal fx normal -ok with ICU -zhanna rowe 3. TIA-acute ischemic stroke, right parietal likely athroembolic -Bilateral carotid artery stenosis 70-79% vascular discussed pt opted for medical management -tobacco abuse 1 PPD 4. CAD,PVD with multiple stents -medical management Electronicallysigned by Taj Gallegos APRN - CHECKERING MACHINE ADJUSTER on 10/19/2020 at 2:24 PM I, Dr. Leslie Ventura MD, saw and evaluated the patient. I personally obtained the devlin and critical portions of the history and physical exam. I reviewed the chart, the UNDERWRITER's documentation, and discussed the patient with the UNDERWRITER. I agree with the UNDERWRITER's medical decision making and have edited the note to reflect my clinical findings and my assessment and plan. Fitz Street decided not to proceed with CEA. I reviewed indication for MP and low likelihood of findings changing diagnosis or treatment with patient and daughter. Mrs. Street wants to go home. Discussed with Dr. Samuel. Will arrange OP F/U and event monitor. Physical Therapy Facility/Department: [facility] ICU T2 Daily Treatment Note NAME: Fitz Street : 1945 Date of Service: 10/19/2020 Discharge Recommendations: IP Rehab Assessment Body structures, Functions, Activity limitations: Decreased functional mobility ;Decreased ROM;Decreased strength;Decreased endurance;Decreased balance;Increased pain;Decreased posture Assessment: Pt performed bed mobility, transfers and ambulation with min assist. Pt tends to neglect L side with ambulation, keeping walker towards R side and running into objects on L. Pt performed bilat LE exercises, tolerated well. Pt and daughter educated on benefits of reguarly performing exercises indep. Recommend IP rehab upon discharge. Specific instructions for Next Treatment: BID until 10/23 Prognosis: Good Decision Making: Medium Complexity PT Education: PT Role;General Safety;Gait Training;Transfer Training;Family Education REQUIRES PT FOLLOW UP: Yes Activity Tolerance Activity Tolerance: Patient limited by endurance;Patient limited by pain;Patient limited by fatigue Patient Diagnosis(es): The primary encounter diagnosis was Hypertensive emergency. Diagnoses of History of right hip replacement, Elevated troponin, Urinary retention, and Ischemic stroke (HCC) were also pertinent to this visit. has a past medical history of Abdominal aortic aneurysm (HCC), Anxiety, Arthritis, Bilateral carotid artery stenosis, CAD (coronary artery disease), Chest pain, COPD (chronic obstructive pulmonary disease) (HCC), Depression, Gallstone pancreatitis, GERD with esophagitis, Gout, Hyperlipidemia, Hypertension, Peripheral vascular disease (HCC), Tobacco abuse, and Vagal reaction. has a past surgical history that includes femoral bypass (Bilateral, 03/03/2015); Hysterectomy, total abdominal; [employer] Procedure; Percutaneous Transluminal Coronary Angio; Knee arthroscopy (Right); Coronary angioplasty with stent; vascular surgery; Cataract removal; and Cholecystectomy, laparoscopic (02/08/2020). Restrictions Restrictions/Precautions Restrictions/Precautions: Fall Risk, Surgical Protocols Position Activity Restriction Other position/activity restrictions: Status post BERTRAM [facility] 10/16. Pt stated I am not allowed to cross my legs -Pt has posterior hip precautions Subjective General Chart Reviewed: Yes Additional Pertinent Hx: BERTRAM 10/16 at [facility] Family / Caregiver Present: Yes(daughter) Subjective Subjective: Pt sitting up in chair, agreeable and pleasant to PT. RN okayed PT. Orientation Orientation Orientation Level: Oriented X4 Cognition Objective Bed mobility Supine to Sit: Minimal assistance Sit to Supine: Minimal assistance Scooting: Independent Comment: HOB flat, pt required asssistance with bilat LE Transfers Sit to Stand: Minimal Assistance Stand to sit: Minimal Assistance Comment: x2 sit to stand from chair, x1 stand to sit EOB Ambulation Ambulation?: Yes More Ambulation?: Yes Ambulation 1 Surface: level tile Device: Rolling Walker Assistance: Minimal assistance Gait Deviations: Slow Cnadice;Decreased step length Distance: 25ft x2 Comments: Pt kept walker towards R side of body. Pt instructed to stay within her walker, but adjusted momentarily and then readjusted with walker on R side. Pt kept head turned toward R and ran into objects on the L. Pt daughter aware of neglect to L side and provided feedback to her mother. Ambulation 2 Surface - 2: level tile Device 2: Rolling Walker Assistance 2: Minimal assistance Gait Deviations: Slow Candice;Decreased step length Distance: 50ft Comments: Pt kept walker towards R side of body. Pt instructed to stay within her walker, but adjusted momentarily and then readjusted with walker on R side. Pt kept head turned toward R and ran into objects on the L Balance Posture: Good Sitting - Static: Good Sitting - Dynamic: Fair Standing - Static: Fair;+ Standing - Dynamic: Fair Comments: Pt to sit EOB unsupported with out LOB for 3 minutes. Pt stood statically with out LOB, for 1 minute, pt reported feeling lightheaded with initally standing and needed to sit secondary to feeling lightheaded adn increased pain in the small of her back Exercises Quad Sets: 1x10 reps bilat LE Heelslides: 1x10 reps bilat LE-Pt instructed to keep hip below 90 degrees flexion with movement Gluteal Sets: 1x10 reps bilat LE Knee Long Arc Quad: 1x10 reps bilat LE Knee Short Arc Quad: 1x10 reps bilat LE Ankle Pumps: 1x10 reps bilat LE Comments: Pt provided with an exericse sheet and educated to perform exericses reguarly throughout the day AROM RLE (degrees) RLE General AROM: Limited secondary to hip precautions; ankle and knee ROM WFL AROM LLE (degrees) LLE AROM : WFL Strength Other Other: Pt to WB on bilat LE with ambulation, and 3-/5 grossly bilat LE strength observed with bed mobility [facility] Score [facility] Inpatient Mobility Raw Score : 12 (10/19/20 1005) [facility] Inpatient T-Scale Score : 35.33 (10/19/205) Mobility Inpatient CMS 0-100% Score: 68.66 (10/19/20 1005) Mobility Inpatient CMS G-Code Modifier : CL (10/19/20 1005) Goals Short term goals Time Frame for Short term goals: 2 weeks Short term goal 1: Pt to perform bed mobility modif indep-progressing Short term goal 2: Pt to tranfer modif indep-progressing Short term goal 3: Pt to ambulate 100ft with least restrictive device modif indep-progressing Patient Goals Patient goals : did not state Plan Plan Times per week: 5x per week Plan weeks: 2 weeks Specific instructions for Next Treatment: BID until 10/23 Current Treatment Recommendations: Strengthening, ROM, Balance Training, Functional Mobility Training, Transfer Training, Gait Training, Endurance Training, Home Exercise Program, Safety Education & Training, Patient/Caregiver Education & Training, Positioning Safety Devices Type of devices: Call light within reach, Gait belt, Patient at risk for falls, Nurse notified, Left in bed Therapy Time Individual Concurrent Group Co-treatment Time In 1332 Time Out 1354 Minutes 22 Timed Code Treatment Minutes: (TP) This physical therapist wore N95 mask, googles/mask & gloves during therapy session. Yeimi Saunders, SPT. Progress Note Subjective: NAEO, patient pleasant and cooperative this morning. Denies any lingering symptoms, worked with PT this morning. Review of Systems Constitutional: Negative for chills and fever. HENT: Negative for hearing loss and trouble swallowing. Eyes: Negative for photophobia and visual disturbance. Respiratory: Negative for chest tightness and shortness of breath. Cardiovascular: Negative for chest pain and palpitations. Gastrointestinal: Negative for abdominal distention, abdominal pain, blood in stool, constipation, diarrhea, nausea and vomiting. Genitourinary: Negative for difficulty urinating and dysuria. Musculoskeletal: Negative for back pain and neck pain. Skin: Negative for rash and wound. Neurological: Negative for weakness and light-headedness. Psychiatric/Behavioral: Negative for behavioral problems and confusion. The patient is not nervous/anxious and is not hyperactive. Objective: Vitals: 10/19/20 1100 BP: (!) 143/89 Pulse: 69 Resp: 19 Temp: SpO2: 98% Physical Exam Vitals signs reviewed. Constitutional: General: She is not in acute distress. Appearance: Normal appearance. She is well-developed. She is not ill-appearing, toxic-appearing or diaphoretic. HENT: Head: Normocephalic and atraumatic. Right Ear: External ear normal. Left Ear: External ear normal. Eyes: General: No scleral icterus. Conjunctiva/sclera: Conjunctivae normal. Neck: Musculoskeletal: Normal range of motion and neck supple. No neck rigidity. Trachea: No tracheal deviation. Cardiovascular: Rate and Rhythm: Normal rate and regular rhythm. Pulmonary: Effort: Pulmonary effort is normal. No respiratory distress. Breath sounds: No stridor. Chest: Chest wall: No tenderness. Abdominal: General: There is no distension. Palpations: Abdomen is soft. Tenderness: There is no abdominal tenderness. There is no guarding or rebound. Musculoskeletal: Normal range of motion. General: No tenderness, deformity or signs of injury. Comments: RLE silverlon dressings intact, limited ROM Skin: General: Skin is warm and dry. Neurological: General: No focal deficit present. Mental Status: She is alert and oriented to person, place, and time. Sensory: No sensory deficit. Psychiatric: Mood and Affect: Mood normal. Behavior: Behavior normal. Thought Content: Thought content normal. LABS: Lab Results Component Value Date NA 140 10/19/2020 K 3.7 10/19/2020 CL 108 (H) 10/19/2020 CO2 28 10/19/2020 BUN 12 10/19/2020 CREATININE 0.63 10/19/2020 GLUCOSE 85 10/19/2020 CALCIUM 8.7 10/19/2020 Lab Results Component Value Date PROT 5.8 (L) 10/19/2020 LABALBU 3.0 (L) 10/19/2020 BILITOT 0.6 10/19/2020 ALKPHOS 89 10/19/2020 AST 40 10/19/2020 ALT 12 10/19/2020 LABGLOM 48.9 (A) 10/18/2020 Lab Results Component Value Date WBC 7.8 10/19/2020 HGB 10.5 (L) 10/19/2020 HCT 32.1 (L) 10/19/2020 MCV 90.6 10/19/2020 PLT 120 (L) 10/19/2020 APTT 24.2 10/18/2020 Lab Results Component Value Date MG 1.6 10/19/2020 Lab and Diagnostic studies were reviewed and discussed with the patient. ASSESSMENT: [id number] s/p likely atheroembolism to R. Parieto-occiptal area found to have R. ICA stenosis (50-65%) and L. ICA stenosis (75-90%) PLAN: - plan for possible intervention on R ICA (symptomatic), will discuss timing - would need cardiac clearance for OR - continue medical management per primary - continue ASA and plavix Discussed with Dr. Cali Ricketts MD General Surgery, PGY-1 10/19/20 12:16 PM Pager # [phone] Attending Supervising Physician's Attestation Statement I performed a history and physical examination on the patient and discussed the management with the resident physician. I reviewed and agree with the findings and plan as documented in her note . -right ICA stenosis, now symptomatic -symptoms improved, nearly resolved -MRI today -currently under evaluation for elevated troponin as well -size/presence of infarct would determine potential timing for possible right CEA -discussed risks and benefits of CEA with patient and her daughter given that now symptomatic; patient still not eager to proceed -will continue to discuss Critical Care Progress Note Subjective: Admit Date: 10/17/2020 PCP: Nilesh Newton MD Interval History: No acute events overnight. Right hip and back pain are resolved. No Prn opiates used overnight. Diet: DIET CARDIAC; Medications: Scheduled Meds: clopidogrel 75 mg Oral Daily sodium chloride flush 5-40 mL Intravenous 2 times per day atorvastatin 40 mg Oral Nightly mirtazapine 30 mg Oral Nightly venlafaxine 150 mg Oral Daily tiotropium 1 capsule Inhalation Daily famotidine 20 mg Oral Daily aspirin 81 mg Oral BID acetaminophen 1,000 mg Oral 3 times per day lidocaine 1 patch Transdermal Daily metoprolol succinate 50 mg Oral Daily Continuous Infusions: sodium chloride Objective: Vitals: BP (!) 131/91 Pulse 68 Temp 98.1 F (36.7 C) Resp 16 Ht 5' 1 (1.549 m) Wt 125 lb (56.7 kg) SpO2 97% BMI 23.62 kg/m Intake/Output Summary (Last 24 hours) at 10/19/2020 1225 Last data filed at 10/19/2020 1200 Gross per 24 hour Intake 1959 ml Output 2400 ml Net -441 ml Results: ABG: Recent Labs 10/18/20 0645 PHART 7.466* PO2ART 64.6* FGI1PNV 43.0 [id number] 30.3* BEART 6.0* [id number] 92.9* CBC: Recent Labs 10/18/20 0014 10/19/20 0437 WBC 10.8* 7.8 HGB 12.3 10.5* PLT 145 120* BMP: Recent Labs 10/18/20 1230 10/19/20 0437 NA 139 140 K 3.3* 3.7 CL 104 108* CO2 29 28 BUN 13 12 CREATININE 0.66 0.63 GLUCOSE 104* 85 . Ionized Calcium: Lab Results Component Value Date IONCA 4.20 10/19/2020 Hepatic: Recent Labs 10/19/20 0437 AST 40 ALT 12 BILITOT 0.6 ALKPHOS 89 Troponin: Recent Labs 10/18/20 0634 10/18/20 1230 10/18/20 1822 TROPONINI 0.443* 0.454* 0.414* BNP: No results for input(s): BNP in the last 72 hours. INR: Recent Labs 10/18/20 0014 INR 1.0 Lactate: Lab Results Component Value Date LACTA 0.7 10/18/2020 LACTA 1.0 05/11/2019 LACTA 3.7 05/10/2019 Physical Exam Vitals signs and nursing note reviewed. Constitutional: General: She is awake. She is not in acute distress. Appearance: She is well-developed and normal weight. She is not ill-appearing or diaphoretic. HENT: Head: Normocephalic and atraumatic. Mouth/Throat: Mouth: Mucous membranes are moist. Pharynx: Oropharynx is clear. Eyes: General: No scleral icterus. Extraocular Movements: Extraocular movements intact. Conjunctiva/sclera: Conjunctivae normal. Pupils: Pupils are equal, round, and reactive to light. Neck: Vascular: No JVD. Trachea: No tracheal deviation. Cardiovascular: Rate and Rhythm: Normal rate and regular rhythm. Pulses: Normal pulses. Heart sounds: Normal heart sounds. No murmur. No friction rub. No gallop. Pulmonary: Effort: No tachypnea, accessory muscle usage or respiratory distress. Breath sounds: Normal breath sounds. Abdominal: General: Bowel sounds are normal. There is no distension. Palpations: Abdomen is soft. Tenderness: There is no abdominal tenderness. Hernia: No hernia is present. Genitourinary: Comments: Lorenzo with clear jarrett urine Musculoskeletal: General: No tenderness. Right lower leg: No edema. Left lower leg: No edema. Skin: General: Skin is warm and dry. Capillary Refill: Capillary refill takes less than 2 seconds. Coloration: Skin is not cyanotic. Nails: There is no clubbing. Neurological: Mental Status: She is alert and oriented to person, place, and time. GCS: GCS eye subscore is 4. GCS verbal subscore is 5. GCS motor subscore is 6. Sensory: Sensation is intact. Motor: Motor function is intact. Psychiatric: Behavior: Behavior is cooperative. Films: CXR: Results for orders placed during the hospital encounter of 10/17/20 XR CHEST PORTABLE Narrative Patient Name: FITZ STREET Diagnostic Radiology ACCESSION EXAM DATE/TIME PROCEDURE ORDERING PROVIDER [id number] 10/18/2020 02:23 EDT CR Chest Portable MD DAMION, KRISTIN Sultana CPT code 70166 Reason For Exam (CR Chest Portable) elevated troponin. PNA? Report PORTABLE CHEST CLINICAL INDICATION: Elevated troponin. COMPARISON: 05/09/2019. TECHNIQUE: A single frontal view of thorax was obtained and reviewed. IMPRESSION: 1. Lines/ tubes/ devices: There is a linear defect along the left costophrenic angle, which may represent artifact. 2. Lungs and Pleura: No pulmonary vascular congestion is seen. Minimal left basilar atelectasis is seen. No infiltrate or mass. No pneumothorax or pleural effusion. 3. Heart and mediastinum: Normal cardiomediastinal margin. 4. Bones: Degenerative changes of shoulders and spine. Short-term follow-up PA and lateral chest radiograph is suggested. Report Dictated on --- Final --- Dictated: 10/18/2020 2:41 am Dictating Physician: CRIS MCKOY DO, I Signed Date and Time: 10/18/2020 2:43 am Signed by: CRIS MCKOY DO, I Transcribed Date and Time: 10/18/2020 2:41 Assessment and Plan: 1. Acute stroke: No current deficits noted. Neuro following. MRI with right cerebral infarction. On ASA and statin. Patient is not wanting to undergo MP. 2. Hypertensive urgency: Off cardene, goal SBP <160, restarted home BB at half home dose. Holding home DAVE currently 3. Elevated troponin: Cardiology following. No EKG changes. Echo with no RWMA 4. Right ICA: Vascular following, appears patient is considering medical management 5. Recent Right BERTRAM: Per ortho WBAT. Pain controlled improved with scheduled tylenol, lidocaine patch, and prn oxycodone which she has not needed. 6. TRAVIS: Resolved. 7. Acute respiratory insufficiency/hx COPD: On RA. On home spiriva. 8. Hx PVD: Hx of femoral stents 9. Hx CAD: ASA, plavix 10. Tobacco use: Did discuss cessation yesterday, appears patient wants to continue 11. GOC: Long discussion with patient and her daughter. She is not interested in living life on machines and is tired of going through operations . Discussed multiple code statuses with patient. She wishes for DNR CCA no intubation. Dispo: Ok for GMF. ICU Prophylaxis: Stress ulcer: [] PPI Agent [x] H2RA [] Sucralfate [] Other: VTE: [] Enoxaparin [] SC Heparin [x] SCD Plan of care discussed with Dr. Mccormack Physical Therapy Facility/Department: [facility] ICU T2 Initial Assessment NAME: Fitz Street : 1945 Date of Service: 10/19/2020 Discharge Recommendations: IP Rehab Assessment Body structures, Functions, Activity limitations: Decreased functional mobility ;Decreased ROM;Decreased strength;Decreased endurance;Decreased balance;Increased pain;Decreased posture Assessment: Pt presents to ED with TIA and s/p BERTRAM 10/16 at [facility] with the above deficits listed. Pt performed bed mobility, transfers, and ambulation min assist. Pt ambulated with walker towards R side, communicated with head turned R and ran into objects on the L when ambulating. Pt able to read menu and c/o cat scratching on a couch noises which she assoociated to previous COVID test. Recommend IP rehab upon discharge. Prognosis: Good Decision Making: Medium Complexity PT Education: PT Role;General Safety;Gait Training;Transfer Training REQUIRES PT FOLLOW UP: Yes Activity Tolerance Activity Tolerance: Patient limited by endurance;Patient limited by pain;Patient limited by fatigue Patient Diagnosis(es): The primary encounter diagnosis was Hypertensive emergency. Diagnoses of History of right hip replacement, Elevated troponin, Urinary retention, and Ischemic stroke (HCC) were also pertinent to this visit. has a past medical history of Abdominal aortic aneurysm (HCC), Anxiety, Arthritis, Bilateral carotid artery stenosis, CAD (coronary artery disease), Chest pain, COPD (chronic obstructive pulmonary disease) (HCC), Depression, Gallstone pancreatitis, GERD with esophagitis, Gout, Hyperlipidemia, Hypertension, Peripheral vascular disease (HCC), Tobacco abuse, and Vagal reaction. has a past surgical history that includes femoral bypass (Bilateral, 03/03/2015); Hysterectomy, total abdominal; [employer] Procedure; Percutaneous Transluminal Coronary Angio; Knee arthroscopy (Right); Coronary angioplasty with stent; vascular surgery; Cataract removal; and Cholecystectomy, laparoscopic (02/08/2020). Restrictions Restrictions/Precautions Restrictions/Precautions: Fall Risk, Surgical Protocols Position Activity Restriction Other position/activity restrictions: Status post BERTRAM [facility] 10/16. Pt stated I am not allowed to cross my legs -Pt has posterior hip precautions Vision/Hearing Vision: Impaired Vision Exceptions: (Pt demonstrated signs of neglect to the L. Pt ambulated with walker to the R, pt with head turned R when communicating and ran into objects on the L when ambulating.) Hearing: Within functional limits Subjective General Chart Reviewed: Yes Patient assessed for rehabilitation services?: Yes Additional Pertinent Hx: BERTRAM 10/16 at [facility] Diagnosis: TIA Subjective Subjective: Pt sitting upright in bed at start of session. Pt agreeable and pleasant to PT, RN okayed PT and took pt off O2 and IV Orientation Orientation Orientation Level: Oriented X4 Social/Functional History Social/Functional History Lives With: Alone Type of Home: House Home Layout: One level Home Access: Stairs to enter without rails Entrance Stairs - Number of Steps: 2 Bathroom Shower/Tub: Tub/Shower unit Bathroom Toilet: Standard Bathroom Equipment: Grab bars in shower, Grab bars around toilet, Shower chair Bathroom Accessibility: Accessible Home Equipment: Grab bars, Standard walker, Cane Receives Help From: Family ADL Assistance: Independent Homemaking Assistance: Independent Homemaking Responsibilities: Yes Ambulation Assistance: Independent Transfer Assistance: Independent Active Insole Presser: Yes Mode of Transportation: Car Occupation: Retired Additional Comments: Has not been in a nursing facility in the last 14 days. Cognition Objective AROM RLE (degrees) RLE General AROM: Limited secondary to hip precautions; ankle and knee ROM WFL AROM LLE (degrees) LLE AROM : WFL Strength Other Other: Pt to WB on bilat LE with ambulation, and 3-/5 grossly bilat LE strength observed with bed mobility Sensation Overall Sensation Status: Impaired Light Touch: Partial deficits in the LLE(Pt unable to feel light touch on dorsum of L foot) Bed mobility Supine to Sit: Minimal assistance Comment: HOB elevated all the way Transfers Sit to Stand: Minimal Assistance Stand to sit: Minimal Assistance Comment: x2 sit to stand from bed, x2 sit to stand from chair Ambulation Ambulation?: Yes More Ambulation?: Yes Ambulation 1 Surface: level tile Device: Rolling Walker Assistance: Minimal assistance Gait Deviations: Slow Candice;Decreased step length Distance: 25ft Comments: Pt kept walker towards R side of body. Pt instructed to stay within her walker, but adjusted momentarily and then readjusted with walker on R side. Pt kept head turned toward R and ran into objects on the L Ambulation 2 Surface - 2: level tile Device 2: Rolling Walker Assistance 2: Minimal assistance Gait Deviations: Slow Candice;Decreased step length Distance: 50ft Comments: Pt kept walker towards R side of body. Pt instructed to stay within her walker, but adjusted momentarily and then readjusted with walker on R side. Pt kept head turned toward R and ran into objects on the L Balance Posture: Good Sitting - Static: Good Sitting - Dynamic: Fair Standing - Static: Fair;+ Standing - Dynamic: Fair Comments: Pt to sit EOB unsupported with out LOB for 3 minutes. Pt stood statically with out LOB, for 1 minute, pt reported feeling lightheaded with initally standing and needed to sit secondary to feeling lightheaded adn increased pain in the small of her back Plan Plan Times per week: 5x per week BID until 10/23/20 (7 days post op from [facility]) Plan weeks: 2 weeks Current Treatment Recommendations: Strengthening, ROM, Balance Training, Functional Mobility Training, Transfer Training, Gait Training, Endurance Training, Home Exercise Program, Safety Education & Training, Patient/Caregiver Education & Training, Positioning Safety Devices Type of devices: Call light within reach, Gait belt, Patient at risk for falls, Left in chair, Nurse notified AM-PAC Score AM-PAC Inpatient Mobility Raw Score : 12 (10/19/20 1005) AM-PAC Inpatient T-Scale Score : 35.33 (10/19/20 1005) Mobility Inpatient CMS 0-100% Score: 68.66 (10/19/20 1005) Mobility Inpatient CMS G-Code Modifier : CL (10/19/20 1005) Goals Short term goals Time Frame for Short term goals: 2 weeks Short term goal 1: Pt to perform bed mobility modif indep Short term goal 2: Pt to transfer modif indep Short term goal 3: Pt to ambulate 100ft with least restrictive device modif indep Patient Goals Patient goals : did not state Therapy Time Individual Concurrent Group Co-treatment Time In 0855 Time Out 0930 Minutes 35 Timed Code Treatment Minutes: 8 Minutes(gait training) This physical therapist wore N95 mask, googles/mask & gloves during therapy session. Patient's Physical Therapy Plan of Care supervision is transferred to [facility] Rehab Department Physical Therapist. Goals and/or treatment plan was established in collaboration with patient/family/other representatives. Yeimi Saunders, SPT. I agree with the above corrections. Gabbi Ruelas PT, DPT Orthopedic Attending Attestation: I evaluated Fitz on rounds today and had a detailed discussion with both patient and her daughter. Agree with plans as detailed by Dr. Crooks below. She is minimally sore about her right hip at this time. It sounds as though she is anxious to discharge back to home. Smoking cessation strongly encouraged yet again. Will monitor for wound drainage given the initiation of plavix. F/U in clinic in 10-14 days for postop check or sooner if needed. Dick Frazier, 10/19/2020 1:09 PM Resident Progress Note Update: -D/W Dr. Frazier. Continue tx with ASA and plavix. Will re-check dressing tomorrow for saturation given ASA/plavix. If patient is to be discharged sooner, please page ortho to check dressing. -No acute surgical intervention. -Recommend aspirin [address] Frazier's postoperative protocol -Okay for Plavix/treat stroke as indicated -D/c'd heparin SQ and changed ASA 81 to BID for DVT PPx and stroke tx (D/w Dr. Adamson) -Keep dressing c/d/i for 7 days postoperative (can remove on POD#8, 5/) -WBAT in right lower -PT/OT P to help ambulate the patient -Activity as tolerated -Ice & elevate -Neurovascular checks -Skin checks -Follow-up outpatient -Pain control and medical management per primary -Orthopaedic surgery will follow for dressing check on 10/20 Barry Crooks PGY-3 Orthopaedic Surgery 10/19/2020 8:11 AM [id number] Occupational Therapy OT order received. Will put pt on schedule for OT evradha. Naida Schulz OTR/L Speech Language Pathology Facility/Department: [facility] ICU T2 CLINICAL BEDSIDE SWALLOW EVALUATION NAME: Fitz Street : 1945 ADMISSION DATE: 10/17/2020 ADMITTING DIAGNOSIS: has Chest pain on exertion; SOB (shortness of breath) on exertion; Dizziness; GERD (gastroesophageal reflux disease); PVD (peripheral vascular disease) (HCC); Coronary artery disease involving [place] coronary artery of [place] heart with angina pectoris (HCC); Abdominal aortic aneurysm (HCC); Hypertension; Hyperlipidemia; Osteoarthrosis; Osteoporosis; Shortness of breath; Tremulousness; Depression with anxiety; Insomnia due to other mental disorder; Weight loss; Hyponatremia; COPD exacerbation (HCC); 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 ONSET DATE: 10/17/20 Recent Chest Xray/CT of Chest: IMPRESSION: 1. Lines/ tubes/ devices: There is a linear defect along the left costophrenic angle, which may represent artifact. 2. Lungs and Pleura: No pulmonary vascular congestion is seen. Minimal left basilar atelectasis is seen. No infiltrate or mass. No pneumothorax or pleural effusion. 3. Heart and mediastinum: Normal cardiomediastinal margin. 4. Bones: Degenerative changes of shoulders and spine. Date of Eval: 10/18/2020 Evaluating Therapist: Anuradha Fuentes Current Diet level: Current Diet : NPO Current Liquid Diet : NPO Pain: Pain Assessment Pain Assessment: 0-10 Pain Level: 0 Pain Type: Acute pain Pain Location: Back Pain Orientation: Mid, Lower Pain Descriptors: Aching Pain Frequency: Continuous Pain Onset: On-going Non-Pharmaceutical Pain Intervention(s): Repositioned, Rest Response to Pain Intervention: Patient Satisfied RASS Score: Alert and calm Reason for Referral Fitz Street was referred for a bedside swallow evaluation to assess the efficiency of her swallow function, identify signs and symptoms of aspiration and make recommendations regarding safe dietary consistencies, effective compensatory strategies, and safe eating environment. Impression Dysphagia Diagnosis: Swallow function appears grossly intact Dysphagia Impression : The patient exhibits a functional swallow at this time. Recommend continued monitoring of the patient, and if a decline in function is demonstrated please make the necessary downgrades and consult ST. Treatment Plan Requires REMEDIAL TEACHER Intervention: No Duration/Frequency of Treatment: No further ST is indicated at this time Recommended Diet and Intervention Diet Solids Recommendation: Regular Liquid Consistency Recommendation: Thin Recommended Form of Meds: PO Compensatory Swallowing Strategies Compensatory Swallowing Strategies: Alternate solids and liquids;Remain upright for 30-45 minutes after meals;Small bites/sips General Chart Reviewed: Yes Subjective Subjective: The patient was seated upright in bed. She was eager to participate in the evaluation. Behavior/Cognition: Alert;Cooperative;Pleasant mood Respiratory Status: Room air Follows Directions: Complex Dentition: Adequate Patient Positioning: Upright in bed Baseline Vocal Quality: Normal Consistencies Administered: Reg solid;Thin - teaspoon;Thin - cup;Thin - straw;Ice Chips;Mixed Consistencies Vision/Hearing Vision Vision: Within Functional Limits Hearing Hearing: Within functional limits Oral Motor Deficits Oral/Motor Oral Motor: Within functional limits Oral Phase Dysfunction Oral Phase Oral Phase: WNL Oral Phase Oral Phase - Comment: Functional mastication and manipulation of a cohesive bolus with solid consistencies. No oral residue noted following clearance. Indicators of Pharyngeal Phase Dysfunction Pharyngeal Phase Pharyngeal Phase: WNL Pharyngeal Phase Pharyngeal: Timely onset of the pharyngeal swallow. Adequate hyolaryngeal excursion upon palpation. The patient exhibited no clinically overt s/s of penetration or aspiration with any consistency presented to her on this date. Total time: 15 minutes ANJU Kingston 10/18/2020 9:50 AM Physical Therapy PT order received. Noted most current activity order is bed rest (0145 vs. Up as tolerated at 0132). However, PT order is via Jesse and Jesse timed 0003 on 10/18 was 100. Will discontinue PT order based on scoring. If PT eval is desired, please reorder as PT eval and treat . I was called by Dr. Donohue in the ED for an opinion regarding Ms. Street who is presenting with stroke-like symptoms and was found to have an elevated troponin of 0.3. Patient is a 75 year old lady with past medical history of CAD sp remote stenting in 2010, hypertension, peripheral artery disease sp femoral stenting, stable AAA, carotid stenosis, tobacco abuse, right hip replacement on 10/16/20, presented to [facility] today with left-sided weakness and dysarthria. Stroke code was called and CTA revealed a right parietal/occipital area of ischemia but TPA was not given due to recent surgery. Her symptoms have been improving since presentation. Patient repeatedly told Dr. Donohue that she was not having any chest pain or discomfort. Dr. Donohue contacted me regarding my opinion about the troponin of 0.3. At this point, patient's BP was 201/89 mmHg. In the setting of recent surgery, acute stroke, hypertensive emergency and no chest pain, this is likely supply demand-ischemia. Patient is already on Aspirin, Plavix and statin. I did convey my concern regarding her elevated blood pressure and recommended monitoring in a critical care unit with a titratable drip like Cardene all while following BP parameters set per neurology team. Dr. Donohue contacted Dr. Samuel for BP parameters and will be using Cardene drip for that end, and has consulted ICU for stroke care management and BP control. He made it clear that he does not need a CCU/cardiology consult at this point. He will call us if patient develops chest pain or troponin continues to increase. Lens Molder, PGY-6 Pager [phone] documented in this encounter [facility] Work Phone: documented in this encounter [facility] Work Phone: Evaluation note* Diagnosis Palpitations documented in this encounter [facility] Work Phone: Evaluation note* Diagnosis Mass of upper outer quadrant of right breast documented in this encounter [facility] Work Phone: Evaluation note* Diagnosis Occlusion and stenosis of bilateral carotid arteries Abdominal aortic aneurysm, without rupture (HCC) AAA (abdominal aortic aneurysm) without rupture (HCC) Abdominal aneurysm without mention of rupture Bilateral carotid artery stenosis Occlusion and stenosis of multiple and bilateral precerebral arteries without mention of cerebral infarction documented in this encounter [facility] Work Phone: Evaluation note* Diagnosis Chronic obstructive pulmonary disease, unspecified COPD type (HCC) documented in this encounter [facility] Work Phone: Evaluation note* Diagnosis Bilateral carotid artery stenosis Occlusion and stenosis of multiple and bilateral precerebral arteries without mention of cerebral infarction documented in this encounter [facility] Work Phone: Evaluation note* Diagnosis Abdominal aortic aneurysm, without rupture, unspecified (HCC)- Primary [facility] Diagnosis Essential (primary) hypertension- Primary Unspecified essential hypertension Abdominal aortic aneurysm, without rupture, unspecified (HCC) Essential (primary) hypertension Unspecified essential hypertension Abdominal aortic aneurysm, without rupture, unspecified (HCC) documented in this encounter [facility]* Diagnosis AAA (abdominal aortic aneurysm) (HCC)- Primary Abdominal aneurysm without mention of rupture documented in this encounter [facility]* Diagnosis Essential hypertension Unspecified essential hypertension [facility] Diagnosis Coronary artery disease involving [place] coronary artery of [place] heart with angina pectoris (HCC)- Primary Mixed hyperlipidemia Primary hypertension Unspecified essential hypertension PVD (peripheral vascular disease) (HCC) Unspecified peripheral vascular disease [facility] Diagnosis Essential hypertension Unspecified essential hypertension documented in this encounter [facility] note* Diagnosis Essential hypertension Unspecified essential hypertension documented in this encounter [facility] note* Diagnosis Essential hypertension Unspecified essential hypertension documented in this encounter [facility] note* Diagnosis Essential hypertension Unspecified essential hypertension documented in this encounter [facility] Advance Directives No Advanced Directives Records FoundDocuments on File Type Date Recorded Patient Dining Services Manager Expl anation Advance Directives and Living Will Power of Search Engine Optimization Analyst Latest Code Status on File Code Status Date Activated Date Inactivated Comments Full Code 05/09/2019 7:51 AM 05/11/2019 9:42 PM Latest Code Status on File Code Status Date Activated Date Inactivated Comments Full Code 02/07/2020 11:05 AM Full Code 05/09/2019 7:51 AM 05/11/2019 9:42 PM Documents on File Type Date Recorded Patient Dining Services Manager Expl anation ACP-Advance Directive ACP-Power of Search Engine Optimization Analyst Latest Code Status on File Code Status Date Activated Date Inactivated Comments Full Code 02/07/2020 11:05 AM 02/09/2020 5:52 PM Documents on File Type Date Recorded Patient Dining Services Manager Expl anation ACP-Advance Directive ACP-Power of Search Engine Optimization Analyst Latest Code Status on File Code Status Date Activated Date Inactivated Comments Full Code 02/07/2020 11:05 AM 02/09/2020 5:52 PM Full Code 05/09/2019 7:51 AM 05/11/2019 9:42 PM Documents on File Type Date Recorded Patient Dining Services Manager Expl anation Advance Directives and Living Will Power of Search Engine Optimization Analyst Latest Code Status on File Code Status Date Activated Date Inactivated Comments DNR-CCA 10/19/2020 12:26 PM Full Code 10/18/2020 6:30 AM 10/19/2020 12:26 PM Full Code 10/18/2020 1:35 AM 10/18/2020 6:30 AM Full Code 02/07/2020 11:05 AM 02/09/2020 5:52 PM Latest Code Status on File Code Status Date Activated Date Inactivated Comments Full Code 10/29/2020 2:52 PM 10/30/2020 2:54 PM Full Code 10/29/2020 7:38 AM 10/29/2020 2:33 PM DNR-CCA 10/19/2020 12:26 PM 10/19/2020 9:07 PM Full Code 10/18/2020 6:30 AM 10/19/2020 12:26 PM Full Code 10/18/2020 1:35 AM 10/18/2020 6:30 AM Latest Code Status on File Code Status Date Activated Date Inactivated Comments Full Code 05/09/2019 7:51 AM 05/11/2019 9:42 PM Summary Purpose Family History No Family History Records FoundNo Family History Records FoundNo Family History Records FoundNo Family History Records FoundNo Family History Records FoundNo Family History Records Found Discharge Instructions * Attachments The following attachments cannot be sent through Care Everywhere. * Cholecystectomy: Post-op ([place]) documented in this encounter* Instructions* Fred Palacios MD - 05/30/2020 Make sure you follow up with her vascular surgeon. As discussed with you and your daughter the aneurysm is slightly larger but can be further followed up as an outpatient. * Attachments The following attachments cannot be sent through Care Everywhere. * Sciatica ([place]) * Abdominal Pain ([place]) documented in this encounter* Instructions* Fred Palacios MD - 05/30/2020 Make sure you follow up with her vascular surgeon. As discussed with you and your daughter the aneurysm is slightly larger but can be further followed up as an outpatient. * Attachments The following attachments cannot be sent through Care Everywhere. * Sciatica ([place]) * Abdominal Pain ([place]) documented in this encounter History of Present Illness * Susanne Greco MS, JUANPABLO, CRUZITO - 02/09/2020 2:44 PM EDT Nutrition Note Patient admitted with gallstone pancreatitis s/p laparoscopic cholecystectomy 02/07. Patient tolerating GI Soft diet and with active discharge orders. Patient awaiting daughter for grain picker. RD sign off to [email or web address] to continue to [facility]. Contact: pager [phone] * Fleicitas Hurt RN - 02/08/2020 5:21 PM EDT Patient returned from OR with daughter present at 1237. Daughter, Nica, angry and asking why she was not informed about patient's surgery occurring. This RN was not notified of upcoming surgery today and from note, surgery decided quickly to perform surgery today. RN was unable to ask patient before transport took her to surgery if she had informed her family or not. Patient is A&Ox4 and was able to sign consent. This RN did not witness consent being signed, this was done in OR holding with surgeons prior to surgery. Apologized to patient and daughter about situation and they wanted to speak to surgeon. Paged Dr. Jaimes and he called room to speak with patient and daughter regarding situation. Several hours later, another daughter called 5N around 1655 regarding patient. This RN answered phone and daughter proceeded to yell at RN and stated she was going to have the whole hospital written up and there would be consquences. RN asked if she could explain what happened and daughter hung up on RN. This RN went into patient's room to assist patient and patient proceeded to apologizefor both of the daughters. Patient and RN discussed situation and this RN apologized for the lack of communication between the surgical team and family. Patient was understanding and stated that everything was okay and that she just wants to focus on getting better. * Yasir Godinez MD - 02/08/2020 12:51 PM EDT Hospitalist Progress Note 02/08/2020 12:51 PM Subjective: Admit Date: 02/07/2020 PCP: Reji Williamson MD Interval History: No overnight issues. Tolerated surgery well - having some low back pain now - chronic DIET CLEAR LIQUID; Date 02/08/20 0000 - 02/08/20 2359 Shift 3897-6057 9169-3604 3125-8514 24 Hour Total INTAKE I.V.(mL/kg) 500(8.2) 500(8.2) Shift Total(mL/kg) 500(8.2) 500(8.2) OUTPUT Blood(mL/kg) 10(0.2) 10(0.2) Shift Total(mL/kg) 10(0.2) 10(0.2) Weight (kg) 61.1 61.1 61.1 61.1 Patient Vitals for the past 96 hrs (Last 3 readings): Weight 02/08/20 0648 134 lb 11.2 oz (61.1 kg) 02/07/20 0509 133 lb (60.3 kg) Medications: lactated ringers 150 mL/hr at 02/07/20 2324 acetaminophen 1,000 mg Oral Q8H lidocaine 1 patch Transdermal Daily potassium chloride 40 mEq Oral Once sodium chloride flush 3 mL Intravenous Q8H aspirin 81 mg Oral Daily lisinopril 30 mg Oral Daily metoprolol succinate 100 mg Oral Daily mirtazapine 30 mg Oral Nightly sodium chloride flush 10 mL Intravenous 2 times per day enoxaparin 40 mg Subcutaneous Daily venlafaxine 150 mg Oral Daily with breakfast allopurinol 150 mg Oral Daily tiotropium 18 mcg Inhalation Daily nicotine 1 patch Transdermal Daily Recent Labs 02/07/20 0440 02/08/20 0525 WBC 9.8 6.0 HGB 14.5 12.9 PLT 151 121* Recent Labs 02/07/20 0440 02/08/20 0525 NA 136 137 K 4.0 3.3* CL 101 104 CO2 28 26 BUN 18 14 CREATININE 0.87 0.73 GLUCOSE 135* 67* Recent Labs 02/07/20 0440 02/08/20 0525 AST 470* 138* ALT 226* 135* BILITOT 1.9* 1.0 ALKPHOS 165* 131* Lab Results Component Value Date TRIG 118 10/27/2017 HDL 45 10/27/2017 LDLCALC 57 10/27/2017 CHOL 126 10/27/2017 No results found for: PHART, PO2ART, [id number] No results for input(s): INR in the last 72 hours. No results for input(s): CKTOTAL, CKMB, TROPONINI in the last 72 hours. No results for input(s): DDIMER in the last 72 hours. No components found for: HGBA1C Lab Results Component Value Date TSH 0.949 07/11/2019 Urine Culture: No results found for this or any previous visit. Objective: Vitals: BP (!) 154/78 Pulse 69 Temp 97.8 F (36.6 C) (Temporal) Resp 20 Ht 5' 1 (1.549 m) Wt 134 lb 11.2 oz (61.1 kg) SpO2 97% BMI 25.45 kg/m Pulse Ox: SpO2 Av.4 % Min: 93 % Max: 100 % Supplemental O2: O2 Flow Rate (L/min): 10 L/min General appearance: alert and cooperative with exam Lungs: clear to auscultation bilaterally Heart: regular rate and rhythm, S1, S2 normal, no murmur, click, rub or gallop Abdomen: soft, non-tender; bowel sounds normal; no masses, no organomegaly Extremities: extremities normal, atraumatic, no cyanosis or edema Neurologic: No obvious focal neurologic deficits. Assessment Principal Problem: Acute pancreatitis without infection or necrosis Active Problems: Essential hypertension Osteoporosis Resolved Problems: * No resolved hospital problems. * Diagnosis Date Abdominal aortic aneurysm (HCC) Anxiety 07/05/2016 Arthritis CAD (coronary artery disease) Chest pain COPD (chronic obstructive pulmonary disease) (HCC) Depression 07/05/2016 GERD with esophagitis 08/02/2016 Gout 01/18/2018 Hyperlipidemia Hypertension Tobacco abuse Vagal reaction 03/03/2015 pt states she had a vagal reaction while in OR for iliac stent surgery and had to have CPR Plan Acute gallstone pancreatitis - s/p lap phong this AM - ok for CLD this AM and advance as tolerated this evening - lipase normalized Acute on chronic low back pain - add lidoderm patch COPD without exacerbation - cont aerosols HTN - resume home meds -am labs -increase activity Advance Directive: Full Code Discharge planning: either later tonight or tomorrow pending how she does with diet Yasir Godinez MD [facility] [place] Hospitalist * Nahomi Palacios RN - 02/08/2020 12:00 PM EDT Report called to Abi KAUR on 5N * Shelly Linares PT - 02/08/2020 9:02 AM EDT Physical Therapy PT evaluation attempted. Patient with transporters, leaving for sx. documented in this encounter* Janine Lopez - 03/23/2020 1:00 PM EDT 1945 [x] Bleeding Tendency- takes 81mg Aspirin (stopped 5 days ago) [] Cancer [] Diabetes-Insulin [] Diabetes- Oral Med [] Fainting/Dizziness [] Seizure Disorder [] Respiratory Disorder [] Infectious Disease [x] High Blood Pressure- om meds []Heart Condition Current Outpatient Medications: ALLOPURINOL PO, Take 150 mg by mouth daily , Disp: , Rfl: tiotropium (SPIRIVA RESPIMAT) 2.5 MCG/ACT AERS inhaler, Inhale 2 puffs into the lungs daily (Patient not taking: Reported on 03/17/2020), Disp: 1 Inhaler, Rfl: 5 metoprolol succinate (TOPROL XL) 100 MG extended release tablet, Take 100 mg by mouth daily, Disp: , Rfl: melatonin 3 MG TABS tablet, Take 5 mg by mouth daily, Disp: , Rfl: LORazepam (ATIVAN) 0.5 MG tablet, Take 0.25 mg by mouth 2 times daily., Disp: , Rfl: mirtazapine (REMERON) 30 MG tablet, Take 1 tablet by mouth nightly, Disp: 90 tablet, Rfl: 1 venlafaxine (EFFEXOR XR) 75 MG extended release capsule, Take 1 capsule by mouth daily (with breakfast), Disp: 30 capsule, Rfl: 3 lisinopril (PRINIVIL;ZESTRIL) 30 MG tablet, Take 1 tablet by mouth daily, Disp: 30 tablet, Rfl: 0 Cholecalciferol (VITAMIN D3) 2000 units CAPS, Take by mouth, Disp: , Rfl: aspirin 81 MG tablet, Take 81 mg by mouth daily, Disp: , Rfl: famotidine (PEPCID) 20 MG tablet, Take 20 mg by mouth daily, Disp: , Rfl: nitroGLYCERIN (NITROSTAT) 0.4 MG SL tablet, Place 0.4 mg under the tongue every 5 minutes as neededfor Chest pain up to max of 3 total doses. If no relief after 1 dose, call 911., Disp: , Rfl: pravastatin (PRAVACHOL) 40 MG tablet, Take 40 mg by mouth daily, Disp: , Rfl: Allergies as follows: Levaquin [levofloxacin in d5w] and Morphine and related Who Accompanied you here today Daughter LMP 46 years old Height 5'1 Weight 133 documented in this encounter Assessments Diagnosis Acute pancreatitis, unspecified complication status, unspecified pancreatitis type Essential hypertension Unspecified essential hypertension Osteoporosis Osteoporosis, unspecified Diagnosis Groin pain, right Sciatica of right side Sciatica Diagnosis Abdominal aortic aneurysm (AAA) without rupture (HCC) Carotid stenosis, asymptomatic, bilateral Diagnosis Atherosclerosis of [place] artery of both lower extremities with intermittent claudication (HCC) Atherosclerosis of [place] arteries of the extremities with intermittent claudication Abdominal aortic aneurysm (AAA) without rupture (HCC) Reason for Referral Status Reason Specialty Diagnoses / Procedures Referred By Contact Referred To Contact Open Vascular Lab Diagnoses Carotid stenosis, asymptomatic, bilateral Procedures VL DUP CAROTID BILATERAL Stephanie Loving PA-C [address] [facility] [address] [place] [address] Status Reason Specialty Diagnoses / Procedures Referre d By Contact Referred To Contact Open Radiology Diagnoses Abdominal aortic aneurysm (AAA) without rupture (HCC) Procedures VL US Duplex Aorta IVC Iliac Complete Miguel Leiva MD [address] [place] [address] [address] [place] [address] Status Reason Specialty Diagnoses / Procedures Referred By Contact Referred To Contact Pending Review Radiology Diagnoses Abdominal aortic aneurysm (AAA) without rupture (HCC) Procedures VL US Duplex Aorta IVC Iliac Complete Miguel Leiva MD [address] [place] [address] [address] [place] [address] Status Reason Specialty Diagnoses / Procedures Referre d By Contact Referred To Contact Open Radiology Diagnoses Atherosclerosis of [place] artery of both lower extremities with intermittent claudication (HCC) Procedures VL Arterial PVR Lower w Exercise Miguel Leiva MD [address] [place] [address] [address] [place] [address] Status Reason Specialty Diagnoses / Procedures Referred By Contact Referred To Contact Pending Review Diagnoses Palpitations Procedures Cardiac event monitor Yadira Greene APRN - CHECKERING MACHINE ADJUSTER [address] [facility] [address] [place] [address] Status Reason Specialty Diagnoses / Procedures Referred By Contact Referred To Contact Authorized Radiology Diagnoses Mass of upper outer quadrant of right breast Procedures PAUL ZAC DIGITAL DIAGNOSTIC BILATERAL Ranjeet Lopez MD 95 [facility], [address] [place] [address] Specialty Diagnoses / Procedures Referred By Contac t Referred To Contact Vascular Lab Diagnoses Bilateral carotid artery stenosis Procedures VL DUP CAROTID BILATERAL Miguel Leiva MD [address] [facility] [address] [place] [address] Referral ID Status Reason Start Date Expiration Date Visits Re quested Visits Authorized [id number] Open 03/26/2021 03/26/2022 1 1 Specialty Diagnoses / Procedures Referred By Contac t Referred To Contact Radiology Diagnoses AAA (abdominal aortic aneurysm) without rupture (HCC) Procedures VL US Duplex Aorta IVC Iliac Complete Hipolito Black PA [address] [place] [address] Referral ID Status Reason Start Date Expiration Date Visits Re quested Visits Authorized [id number] Open 04/22/2021 04/22/2022 1 1 Status Reason Specialty Diagnoses / Procedures Re ferred By Contact Referred To Contact Open Diagnoses Chronic obstructive pulmonary disease, unspecified COPD type (HCC) Procedures Full PFT Study With Bronchodilator Les Cho MD [address] [facility] [address] [place] [address] Specialty Diagnoses / Procedures Referred By Contac t Referred To Contact Vascular Lab Diagnoses Bilateral carotid artery stenosis Procedures VL Carotid Bilateral Miguel Leiva MD [address] [facility] [address] [place] [address] Referral ID Status Reason Start Date Expiration Date Visits Re quested Visits Authorized [id number] Closed 11/03/2020 11/03/2021 1 1 Specialty Diagnoses / Procedures Referred By Contac t Referred To Contact Cardiology Diagnoses Abdominal aortic aneurysm, without rupture, unspecified (HCC) Procedures Vascular US aorta iliac duplex limited Miguel Leiva MD [address] [facility] [address] [place] [address] Referral ID Status Reason Start Date Expiration Date Visits Requested Visits Authorized [id number] Pending Review Perform Procedure 07/15/2022 01/11/2023 1 1 Specialty Diagnoses / Procedures Referred By Contac t Referred To Contact Radiology Diagnoses Essential (primary) hypertension Abdominal aortic aneurysm, without rupture, unspecified (HCC) Procedures CT abdomen w and wo IV contrast Chace Anderson Referral ID Status Reason Start Date Expiration Date V isits Requested Visits Authorized [id number] Pending Review 07/16/2022 01/12/2023 1 1 Specialty Diagnoses / Procedures Referred By Contac t Referred To Contact Radiology Diagnoses Essential (primary) hypertension Abdominal aortic aneurysm, without rupture, unspecified (HCC) Procedures CTA abdomen pelvis angiogram w and/or wo IV contrast Chace Anderson Referral ID Status Reason Start Date Expiration Date Visits Re quested Visits Authorized [id number] Closed 07/16/2022 01/12/2023 1 1 Specialty Diagnoses / Procedures Referred By Contac t Referred To Contact Radiology Diagnoses AAA (abdominal aortic aneurysm) (HCC) Procedures CTA abdomen angiogram w and/or wo IV contrast Miguel Leiva MD [address] [place] [address] [place] [address] Referral ID Status Reason Start Date Expiration Date V isits Requested Visits Authorized [id number] Pending Review 07/18/2022 01/14/2023 1 1 Additional Source Comments INFORMATION SOURCE (unrecogn ized section and content) DATE CREATED AUTHOR AUTHOR'S ORGANIZ ATION 05/07/2021 [facility] DATE CREATED AUTHOR AUTHOR'S ORGANIZ ATION 07/03/2021 [facility] DATE CREATED AUTHOR AUTHOR'S ORGANIZ ATION 04/18/2022 [facility] CREATED AUTHOR AUTHOR'S ORGANIZ ATION 09/30/2022 [facility] DATE CREATED AUTHOR AUTHOR'S ORGANIZ ATION 05/29/2023 [facility] Reason for Visit (unrecogniz ed section and content) Reason Comments Groin Pain R lower groin pain Reason Comments Cerebrovascular Accident Reason Onset Date Comments Med Refill 01/26/2023 Reason Comments 6 Month Follow-up Coronary Artery Disease Reason Onset Date Comments Med Refill 05/02/2023 Reason Comments Med Refill Ordered Prescriptions (unrec ognized section and content) Care Teams (unrecognized sec tion and content) 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 Specialty Start Date End Date Nilesh Newton MD PCP - General Internal Medicine 03/17/20 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 Specialty Start Date End Date Nilesh Newton MD [address] [place] [address] PCP - General 03/17/20 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 Specialty Start Date End Date Nilesh Newton MD [address] [place] [address] PCP - General 03/17/20 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 Specialty Start Date End Date Nilesh Newton MD [address] [place] [address] PCP - General 03/17/20 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 Specialty Start Date End Date Nilesh Newton MD [address] [place] [address] PCP - General 03/17/20 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 Specialty Start Date End Date Nilesh Newton MD [address] [place] [address] PCP - General 03/17/20 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 Specialty Start Date End Date Nilesh Newton MD [address] [place] [address] PCP - General 03/17/20 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 Specialty Start Date End Date Nilesh Newton MD [address] [place] [address] PCP - General 03/17/20 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 Specialty Start Date End Date Nilesh Newton MD [address] [facility] [place] [address] PCP - General 03/17/20 FOR RECORDS PERTAINING TO PATIENTS WHO ARE OR HAVE BEEN ENROLLED IN A CHEMICAL DEPENDENCY/SUBSTANCEABUSE PROGRAM, SOME INFORMATION MAY BE OMITTED. This clinical summary was aggregated from multiple sources. Caution should be exercised in using it in the provision of clinical care. This summary normalizes information from multiple sources, and as a consequence, information in this document may materially change the coding, format and clinical context of patient data. In addition, data may be omitted in some cases. CLINICAL DECISIONS SHOULD BE BASED ON THE PRIMARY CLINICAL RECORDS. [facility] [employer] [facility] provides no warranty or guarantee of the accuracy or completeness of information in this document.
== END | disposition home or self-care (01) ==
PROVIDERS: PCP Internal Medicine; Referring Provider Surgery Trauma Surgery; Visit Provider Surgery Trauma Surgery
DX: I71.40 Abdominal aortic aneurysm, without rupture, unspecified (principal); I74.09 Other arterial embolism and thrombosis of abdominal aorta; I65.23 Occlusion and stenosis of bilateral carotid arteries
CPT/HCPCS: 93880; 93978